=== PATIENT | female | born 1975 | race Caucasian/White ===

== ENCOUNTER 2024-05-02 14:26 | Outpatient (BNV) | payer MEDICAID, SELFPAY | END 2024-05-06 16:00 | PROVIDERS: Admitting Provider Psychiatry & Neurology Psychiatry; Visit Provider Radiology Diagnostic Radiology | DX: M25.512 Pain in left shoulder (principal) | CPT/HCPCS: 73030 ==

== ENCOUNTER 2024-05-02 14:26 | Outpatient (BNV) | payer MEDICAID, SELFPAY | END 2024-05-07 08:00 | PROVIDERS: Admitting Provider Psychiatry & Neurology Psychiatry; Visit Provider General Practice | DX: R10.12 Left upper quadrant pain (principal) | CPT/HCPCS: 76705 ==

== ENCOUNTER 2024-05-02 14:26 | Inpatient (IN) | payer OTHER, SELFPAY ==
--- NOTE | ~2024-05-02 | US_ITS ---
CLINICAL HISTORY: LUQ pain, pt believes she has hernia sx US abdomen limited Comparison: None Findings: Limited/focused ultrasound at area of interest in anterior left upper quadrant. No mass or fluid collection identified. No hernia identified. IMPRESSION: No hernia, mass or fluid collection identified at area of interest in the left upper quadrant. This document has been electronically signed by: Guille Trevino MD, PHD on 05/09/2024 00:48:01
--- NOTE | ~2024-05-02 | XR_ITS ---
CLINICAL HISTORY: rotator cuff area pain 3 view left shoulder Comparison: None Findings: Bones intact. No dislocations. Acromioclavicular osteoarthritis. No erosions. No radiopaque foreign body. IMPRESSION: 1. No acute findings This document has been electronically signed by: Jaswant Morrison MD on 05/06/2024 17:17:40
[2024-05-02 14:37] VITALS: BP 148/82; PULSE 71; RESP 16; TEMP 36.4; O2SAT 97
[2024-05-02 14:38] VITALS: BMI 27.9
--- OUTSIDE RECORDS SUMMARY | 2024-05-02 15:42 | XMS_ITS | Clinical Summary ---
[facility] Address [address] [place] [address] Phone Care Team Providers Care Chemistry Technical Officer Name Role Phone Required, No Pcp/Pcp Not Primary Care Provider U navailable Medications levoFLOXacin (LEVAQUIN) 750 MG tablet Take 1 tablet (750 mg) by mouth daily for 10 days 10 tablet 5 05/04/19 25 Active metroNIDAZOLE (FLAGYL) 500 MG tablet Take 1 tablet (500 mg) by mouth three times a day for 10 days 30 tablet 5 05/04/19 25 Active DULoxetine (CYMBALTA) 30 MG capsule Take 1 capsule (30 mg) by mouth daily 5 Active oxyCODONE (Roxicodone) 5 MG immediate release tablet Take 1 tablet (5 mg) by mouth every four hours as needed for pain 7-10 3 each 5 05/01/19 25 Discontinu ed(Patient no longer taking) Active Problems Problem Noted Date Diagnosed Date Depression, major, severe recurrence 05/01/2024 Encounters Date Type Department Care Team Description 05/01/2024 2:27 PM EST - 05/02/2024 12:41 PM [facility] Emergency [facility] - Emergency Department [address] [place] [id number] Julian Chatterjee MD Chang, Howard Hong-Juei, MD Pierce, Jonathan David, DO Obrien, Elizabeth, MD Discharge Disposition: Psychiatric Facility 05/01/2024 Travel 04/24/2024 2:05 PM EST - 04/24/2024 4:02 PM [facility] Emergency [facility] - Emergency Department [address] [place] [address] Dental caries (Primary Dx); Dental infection Discharge Disposition: Home / Self Care from Last 3 Months Social History Tobacco Use Types Packs/Day Years Used Date Smoking Tobacco: Never Assessed Comments Unknown Sex and Gender Information Value Date Recorded Sex Assigned at Not on file Legal Sex Female 1:21 PM EST Gender Identity Not on file Sexual Orientation Not on file Last Filed Vital Signs Vital Sign Reading Time Taken Comments Blood Pressure 117/82 05/02/2024 11:59 AM EST Pulse 100 05/02/2024 11:59 AM EST Temperature 36.7 ??C (98 ??F) 05/02/2024 11:59 AM EST Respiratory Rate 18 05/02/2024 11:59 AM EST Oxygen Saturation 96% 05/02/2024 11:59 AM EST Inhaled Oxygen Concentration - - Weight 83 kg (183 lb) 05/01/2024 1:07 PM EST Height 167.6 cm (5' 6 ) 05/01/2024 1:07 PM EST Body Mass Index 29.54 05/01/2024 1:07 PM EST Plan of Treatment Health Maintenance Due Date Last Done Comments [facility] TOPIC SIGMOIDOSCOPY 1974 [facility] Topic HIV Screening 1974 [facility] Topic Hepatitis C Screening 1974 [facility] Topic Depression Screening 1986 [facility] Topic Tdap Vaccine (1 - Tdap) 1993 [facility] Topic Lipid Profile 5 years 1996 [facility] Topic Cervical Cancer Screening 2004 [facility] TOPIC MAMMOGRAM 2014 [facility] TOPIC FOBT/FIT TEST 06/26/2019 [facility] Topic Cologuard 06/26/2019 [facility] Topic Colon Cancer Screening 06/26/2019 [facility] Topic Colonoscopy 06/26/2019 [facility] Topic Influenza (Flu) Seasonal (#1) 2023 [facility] Topic HIB Vaccines Aged Out No longer eligible based on patient's age to complete this topic Procedures Procedure Name Priority Date/Time Associated Diagnosis Comments URINE DRUGS OF ABUSE SCREEN STAT 05/01/2024 5:43 PM EST SLIDE REVIEW Routine 05/01/2024 5:21 PM EST HCG, QUANTITATIVE STAT 05/01/2024 5:2 1 PM EST SALICYLATE LEVEL STAT 05/01/2024 5:21 PM EST ETHANOL STAT 05/01/2024 5:21 PM EST COMPREHENSIVE METABOLIC PANEL STAT 05/01/2024 5:21 PM EST CBC WITH AUTO DIFFERENTIAL STAT 05/01/2024 5:21 PM EST ACETAMINOPHEN LEVEL STAT 05/01/2024 5 :21 PM EST ECG 12-LEAD STAT 05/01/2024 4:24 PM EST COVID-19 ([facility]) STAT 05/01/2024 3:58 PM EST from Last 3 Months Results * Urine drugs of abuse screen (05/01/2024 5:43 PM EST) Amphetamines, Urine Screen None Detected None Detected 05/01/2024 6:13 PM [facility] Barbiturates, Urine Screen None Detected None Detected 05/01/2024 6:13 PM [facility] Benzodiazepines, Urine Screen None Detected None Detected 05/01/2024 6:13 PM [facility] Cocaine, Urine Screen None Detected None Detected 05/01/2024 6:13 PM [facility] Opiates, Urine Screen None Detected None Detected 05/01/2024 6:13 PM [facility] Cannabinoids (THC), Urine Screen None Detected None Detected 05/01/2024 6:13 PM [facility] Tricyclic Antidepressants, Urine Screen None Detected None Detected 05/01/2024 6:13 PM [facility] Fentanyl, Urine Screen None Detected None Detected 05/01/2024 6:13 PM [facility] Methadone, Urine Screen None Detected None Detected 05/01/2024 6:13 PM [facility] Oxycodone, Urine Screen None Detected None Detected 05/01/2024 6:13 PM [facility] Buprenorphine, Urine Screen None Detected None Detected 05/01/2024 6:13 PM [facility] Phencyclidine, Urine Screen None Detected None Detected 05/01/2024 6:13 PM [facility] Urine Urine specimen obtained by clean catch procedure / Unknown Non-blood Collection / Unknown 05/01/2024 5:43 PM EST 05/01/2024 5:56 PM [facility] - 05/01/2024 6:13 PM EST This is a screening test for urine drugs of ABUSE only, performed using Zuleyka Joel analyzer. It is not designed or intended to monitor treatment or assess patient compliance. ??Those purposes are best served by a specific assay for the specific drug being administered. ?? Like any screening test, this drug screen has inherent limitations. ?? A result of NONE DETECTED indicates the absence of the major metabolites of the tested drugs or their presence at a level below the cut-off concentration (see below). ??False negative results may be due to the pharmacokinetics of the drug and/or the timing of the sample relative to the use of the drug in question. ?? A POSITIVE result is a presumptive qualitative positive which indicates that the major metabolites of the tested drugs are likely present at or above their cut- off concentration (see below). ??False positive results may be caused by cross- reacting substances. ??Unconfirmed positive results of this screening test must not be used for non-medical purposes. ?? Cutoffs for Drug Classes: Amphetamines ? 1000 ng/mL Barbiturates ? 200 ng/mL Benzodiazepines ??100 ng/mL Cocaine ?300 ng/mL Opiates ?300 ng/mL TCA ?300 ng/mL THC ?50 ng/mL Fentanyl ?5 ng/mL Methadone ?300 ng/ml Oxycodone ?100 ng/ml Buprenorphine ?5 ng/ml Phencyclidine ? 25 ng/ml [facility] URINE ORDERABLES Final Result [facility] [address] [place] [address], [place] [phone] * Slide Review (05/01/2024 5:21 PM EST) RBC Morphology Normal 05/01/2024 6:29 PM [facility] Blood Venous blood / Unknown Venipuncture / Unknown 05/01/2024 5:21 PM EST 05/01/2024 5:30 PM EST Armando Pascale [facility] BLOOD ORDERABLES Final Result Performing Organization Address City/[facility]/ZIP Co de Phone Number [facility] [address] [place] [address], [place] [phone] * (ABNORMAL) CBC with auto differential (05/01/2024 5:21 PM EST) WBC 11.2(H) 4.5 - 10.8 10*3 ??l 05/01/2024 5:58 PM [facility] RBC 5.00 4.20 - 5.40 10*6 ??l 05/01/2024 5:58 PM [facility] Hemoglobin 15.7 12.0 - 16.0 g/dL 05/01/2024 5:58 PM [facility] Hematocrit 46.2 36.0 - 48.0 % 05/01/2024 5:58 PM [facility] MCV 92 81 - 99 fL 05/01/2024 5:58 PM [facility] MCH 31.4 25.4 - 39.0 pg 05/01/2024 5:58 PM [facility] MCHC 34.0 31.0 - 37.0 g/dL 05/01/2024 5:58 PM [facility] RDW 12.7 11.5 - 14.5 % 05/01/2024 5:58 PM [facility] Platelets 457(H) 150 - 450 10*3 ??l 05/01/2024 5:58 PM [facility] MPV 8.9 7.0 - 11.0 fL 05/01/2024 5:58 PM [facility] Neutrophils % 73.6 40.0 - 80.0 % 05/01/2024 5:58 PM [facility] Lymphocytes % 18.4(L) 20.0 - 40.0 % 05/01/2024 5:58 PM [facility] Monocytes % 5.9 2.0 - 10.0 % 05/01/2024 5:58 PM [facility] Eosinophils % 1.2 1.0 - 6.0 % 05/01/2024 5:58 PM [facility] Basophils % 0.4 0.0 - 1.0 % 05/01/2024 5:58 PM [facility] Immature Granulocyte % 0.5 0.0 - 0.9 % 05/01/2024 5:58 PM [facility] Neutrophils Absolute 8.24(H) 2.00 - 7.00 K/mm3 05/01/2024 5:58 PM [facility] Absolute Immature Granulocyte 0.06 0.00 - 0.09 K/mm3 05/01/2024 5:58 PM [facility] Lymphocytes Absolute 2.06 1.00 - 3.00 K/mm3 05/01/2024 5:58 PM [facility] Monocytes Absolute 0.66 0.20 - 1.00 K/mm3 05/01/2024 5:58 PM [facility] Eosinophils Absolute 0.13 0.00 - 0.50 K/mm3 05/01/2024 5:58 PM [facility] Basophils Absolute 0.04 0.00 - 0.10 K/mm3 05/01/2024 5:58 PM [facility] Blood Venous blood / Unknown Venipuncture / Unknown 05/01/2024 5:21 PM EST 05/01/2024 5:30 PM EST us Armando AL[facility] BLOOD ORDERABLES Final Result [facility] [address] [place] [address], * hCG, quantitative, (05/01/2024 5:21 PM EST) HCG, Total <=1.00 mIU/mL 05/01/2024 5:57 PM EST [facility] Comment: Reference Ranges ? mIU/mL <1 - 5 ?Negative 6 - 9 ? Indeterminate - suggest repeat in 48 hours Weeks post LMP ? HCG Range ??4 weeks ? 420 - 4,480 ??5 weeks ? 270 - 28,700 ??6 weeks ? 3,700 - 84,900 ??7 weeks ? 9,700 - 120,000 ??8 weeks ? 31,100 - 184,000 ??9 weeks ? 61,200 - 152,000 10 weeks ? 22,000 - 143,000 14 weeks ? 14,300 - 75,800 16 weeks ? 8,800 - 54,500 18 weeks ? 3,900 - 49,400 Blood Venous blood / Unknown Venipuncture / Unknown 05/01/2024 5:21 PM EST 05/01/2024 5:29 PM EST [facility] BLOOD ORDERABLES Final Result [facility] [address] [place] [address], [place] [phone] * Ethanol (05/01/2024 5:21 PM EST) Ethanol <=10 0 - 10 mg/dL 05/01/2024 6:08 PM EST [facility] Comment:NONE DETECTED: Resul t <10 should be interpreted as NONE DETECTED. Blood Venous blood / Unknown Venipuncture / Unknown 05/01/2024 5:21 PM EST 05/01/2024 5:29 PM EST [facility] BLOOD ORDERABLES Final Result [facility] [address] [place] [address], [place] [phone] * Acetaminophen level (05/01/2024 5:21 PM EST) Acetaminophen Level <5.1 <15.0 ug/mL 05/01/2024 6:08 PM [facility] Blood Venous blood / Unknown Venipuncture / Unknown 05/01/2024 5:21 PM EST 05/01/2024 5:29 PM EST [facility] BLOOD ORDERABLES Final Result [facility] [address] [place] [address], [place] [phone] * Salicylate level (05/01/2024 5:21 PM EST) Salicylate Level <=3.0 3.0 - 30.0 mg/dL 05/01/2024 6:08 PM [facility] Blood Venous blood / Unknown Venipuncture / Unknown 05/01/2024 5:21 PM EST 05/01/2024 5:29 PM EST us [facility] BLOOD ORDERABLES Final Result [facility] [address] [place] [address], [place] [phone] * (ABNORMAL) Comprehensive metabolic panel (05/01/2024 5:21 PM EST) Pathologist [facility] Glucose 91 70 - 100 mg/dL 05/01/2024 5:59 PM [facility] BUN 9 6 - 19 mg/dL 05/01/2024 5:59 PM [facility] Creatinine 0.9 0.4 - 1.2 mg/dL 05/01/2024 5:59 PM [facility] eGFR >60.00 >60.00 mL/min/1.7 3m*2 05/01/2024 5:59 PM [facility] Sodium 136 135 - 145 mmol/L 05/01/2024 5:59 PM [facility] Potassium 3.9 3.4 - 5.1 mmol/L 05/01/2024 5:59 PM [facility] Chloride 97(L) 98 - 109 mmol/L 05/01/2024 5:59 PM [facility] CO2 27 24 - 32 mmol/L 05/01/2024 5:59 PM [facility] Anion Gap 12 6 - 12 mmol/L 05/01/2024 5:59 PM [facility] Calcium 9.6 8.5 - 10.5 mg/dL 05/01/2024 5:59 PM [facility] Total Bilirubin 0.2 0.2 - 1.2 mg/dL 05/01/2024 5:59 PM [facility] Alkaline Phosphatase 142(H) 35 - 104 U/L 05/01/2024 5:59 PM [facility] ALT (SGPT) 18 0 - 31 U/L 05/01/2024 5:59 PM [facility] AST 21 0 - 32 U/L 05/01/2024 5:59 PM EST [facility] Total Protein 7.6 6.0 - 8.5 g/dL 05/01/2024 5:59 PM [facility] Albumin 4.4 3.3 - 5.2 g/dL 05/01/2024 5:59 PM EST [facility] Estimated Creatinine Clearance 82.1 mL/min 05/01/2024 5:59 PM EST [facility] Blood Venous blood / Unknown Venipuncture / Unknown 05/01/2024 5:21 PM EST 05/01/2024 5:29 PM EST [facility] AL[facility] BLOOD ORDERABLES Final Result [facility] [address] [place] [address], * ECG (05/01/2024 4:24 PM EST) 05/01/2024 4:24 PM EST 05/02/2024 10:23 AM EST Impressions MUSE - 05/02/2024 10:23 AM EST Test Reason : SI Blood Pressure : ?? */* ?? mmHG Vent. Rate : ??84 BPM ? Atrial Rate : ??84 BPM ?? P-R Int : 140 ms ?QRS Dur : ??76 ms ?QT Int : 350 ms ? P-R-T Axes : ??83 ??56 ??50 degrees ?? QTc Int : 413 ms Normal sinus rhythm Normal ECG No previous ECGs available Referred By: LEYLA GA ? Confirmed By: Galo Sanchez Narrative Procedure Note Galo Sanchez MD - 05/02/2024 IMPRESSION Test Reason : SI Blood Pressure : */* mmHG Vent. Rate : 84 BPM Atrial Rate : 84 BPM P-R Int : 140 ms QRS Dur : 76 ms QT Int : 350 ms P-R-T Axes : 83 56 50 degrees QTc Int : 413 ms Normal sinus rhythm Normal ECG No previous ECGs available Referred By: LEYLA GA Confirmed By: Galo Sanchez us Leyla Ga MD ECG ORDERABLES Final Resu lt MUSE * COVID-19 ([facility]) (05/01/2024 3:58 PM EST) COVID-19 ([facility]) PCR Negative Negative LTT PANTHER ANALYZER-DP H 05/01/2024 8:41 PM EST [facility] Swab (Nasopharynx) Non-blood Collection / Unknown 05/01/2024 3:58 PM EST 05/01/2024 5:02 PM EST us Armando AL[facility] MICROBIOLOGY - GENERAL ORDERABLES Final Result [facility] [address] [facility] [place] [address], from Last 3 Months Advance Directives For more information, please contact: [phone] * Full Code (Latest Code Status on File) Date Activated Date Inactivated Comments 05/01/2024 8:25 PM Question Answer Comments Cardiopulmonary Resuscitatio n: for a patient in cardiac or respiratory arrest (Full Code = Attempt Resuscitation, DNR = Do not attempt resuscitation): Full Code Ventilation: for a patient in respiratory distre ss: Intubate and Ventilate Care Teams Chemistry Technical Officer Relationship Specialty Start Date End Date Required, No Pcp/Pcp Not [address] [place] [address] PCP - General Treasury Representative 04/24/24
--- OUTSIDE RECORDS SUMMARY | 2024-05-02 15:42 | XMS_ITS | Encounter Summary ---
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 send a message? No Ask the person: Are you in a Dangerous Situation? No If Yes, please explain: (Follow and document per your emergency protocols) N/A Patient Preferred Languages Pl[employer] Designer Needed No Spoken Language Micronesian Written Language Micronesian Assessment Location of Service (R): ED Who directed client to ED? (R) Self/Family Was the patient sent with a Section 12 (R) No Who signed Section 12? (R) N/A Presenting Concerns: What has caused this person to seek Services at this time? Increased depression and SI thoughts Precipitating Factors: recent breakup and relocation Medical/Physical No past medical history on file. Allergies Reported Not on File Medications Prior to Admission medications Medication Sig Start Date End Date Taking? Authorizing Provider levoFLOXacin (LEVAQUIN) 750 MG tablet Take 1 tablet (750 mg) by mouth daily for 10 days 04/24/24 05/04/24 Solitario Escalera PA metroNIDAZOLE (FLAGYL) 500 MG tablet Take 1 tablet (500 mg) by mouth three times a day for 10 days 04/24/24 05/04/24 Solitario Escalera PA oxyCODONE (Roxicodone) 5 MG immediate release tablet Take 1 tablet (5 mg) by mouth every four hoursas needed for pain 7-10 04/24/24 Solitario Escalera PA Relevant History No family history on file. Addiction Is there a history of, or current substance use or other addictive behavior? No Was a toxicology screen performed? Yes Results: N/A Was Narcan administered during the last 30 days? No Explain (Please include date and time): N/A Addiction/ Substance Use History Substance Type First Use/Age of Onset Last Use Duration/Frequency Quantities Comments Alcohol Cannabis Cocaine/Crack Heroin Opiates/Narcotics Benzodiazepines Stimulants Hallucinogens Prescription Other: Click or tap here to enter text. Most Recent Acute Admission(s) and Treatment History Has there been a recent acute admission or treatment history? No Please include dates of admission, service type, name of agency/provider, goal/outcome: N/A Mental Status Exam/Risk Assessment Mental Status Exam/Risk Assessment (within normal limits unless checked, items checked are addressed in clinical formulation/narrative: *Harm to Self , Affect, Appetite, Energy, Impulsivity, Insight,Judgement, Mood, and Thought Content *Harm to Self and Others include: Means, accessibility (included access to firearms), lethality of means, suicidal/assault history, lethality or attempts/assaults, family history, self- injurious behavior Risk and Protective Factors: Risk: Lack of outpatient services Increased depression Endorsing SI Protective: Help seeking Supportive community Clinical Formulation/Narrative/Medical Necessity: Marlin Garrison is a 48 year old female who presented to the ED with increased SI thoughts. Ms. Garrison is not known to [facility], and has a current diagnosis of depression. Ms. Garrison doesnot currently have any current outpatient services and she has not been hospitalized in several years. Ms. Garrison had a suicide attempt at 16 years old, and she has been medically cleared. Ms. Garrison states she is here today because she is increasingly ???depressed?? and that she has had ???suicidal thoughts?? for the past 2 weeks. Ms. Garrison shares that she has recently moved back to [place] from [place] a month ago, and has also recently gone through a ???breakup with my fianc??e?? Ms. Garrison, states her cousin who ???does what you do?? brought her in to the hospital because she was talking to her ???about my thoughts?? Ms. Garrison does not specifically endorse a plan to end her life, she states ???right now I'm ok but who knows in an hour?? . She denies access to firearms, and denies the use of alcohol or illicit drugs. Ms. Garrison shares her mother had a significant psychiatric history, and she describes her mood as ???sad?? Ms. Garrison states her sleep has been horrible, and she has not felt like eating. Ms. Garrison states she has not been able to ???get out of bed?? since she moved back from [place], and that's all she does all day. She states she lives with her friend's mother and she appears to have support in the community. Ms. Mcpherson was resting in her bed in the ED Room 23, wearing green scrubs, she is A&OX4. Ms. Mcpherson was fully engaged and cooperative, and presented with a flat affect. Her speech was clear and well-modulated, her thoughts were organized and linear. She denies any intent to self-harm or cause harm to others, she denies HI however she does not deny SI thoughts. When asked about A/V Hallucinations, Ms. Mcpherson states she sometimes ???see my mother?? Ms. Garrison presents with moderate insight, low impulsivity, and moderate judgement. She did not appear to be responding to internal stimuli and her thoughts did not appear to contain delusional or paranoid thoughts. 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 Collateral information attempted to be collected from Ms. Garrison's cousin Natacha Nath [phone], who was unavailable, and no call back was received. At this time it is recommended that Ms. Garrison be placed for an IPLOC. Back-Up Clinician Candis COTTO and the ED PA Brenda Chowdhury, and well as the ED Physician Julian Chatterjee MD were all consulted and in agreement with the current treatment plan. Ms. Mcpherson, her [facility] ED Care Team and the [facility] Triage have all been notified of the current plan. Strengths and Services Preferences: Person's strengths and service preferences: Mitigate depression and SI Is there a Safety Plan? (R): Yes If yes, please explain: IPLOC Was a Safety Plan completed or updated during the course of this intervention? (R) Yes If no, please explain: N/A Diagnosis Type Mental Health Only (R): Yes Substance Use Disorder Only (R): No Dual Diagnosis (R): No Comments: N/A Is this person diagnosed with Autism Spectrum Disorder? (R): No Was a Doc to Doc performed? (R): No Was this an Opiod overdose? (R): No Is this a SUDE (Substance Use Disorder Evaluation)? No Was there an MARGIE Peer or FP participating in the intervention? (R): No Who initiated FP intervention? (R): N/A Identified Needs and Goals for Treatment Medication stabilization 2. Mental health evaluation 3. Outpatient services Additional Recommendations Additional Recommendations: Case Management Services, MARGIE Follow-Up Clinician, FP, CPS, etc, Medication Assisted Treatment, Other, Outpatient Mental Health Provider, Resource Coordination, Self-Help/Peer/Family Support Services, Long Term/Homeless Services, and Psychopharmacology If other, please explain: Disposition Details Information gathered from:Person Served, Family/Guardian, Hospital Staff, and Reports If other, please explain: Medical Clearance Requested (R): Yes Medical Clearance Requested by (R): ED If other, please explain: Medical Clearance Provided (R): Yes Medical Clearance Provided Where? (R): ED If other, please explain: Clinical Consult done with:Candis Dang Current Safety Assessment: Able to plan for safety in a supportive environment only If other, please explain: Inital Disposition: Inpatient Psychiatric Private For Acute Care Time (R): Psychiatric Consult Began Date (R): Time (R): Psychiatric Intervention Began Date (R): Time (R): Intervention Began Time (R) Telehealth: NA Diagnosis: F32.9 Unspecified depressive disorder Consult Note documented in this encounter ED Notes * Brenda Meléndez PA - 05/01/2024 7:26 PM EST PSYCH SHIFT ASSESSMENT NOTE: Assumed care from my colleague at change of shift. Patient remains stable. Patient awaiting psych disposition No new complaints. Has received necessary baseline medications. MD available:Sen Inpatient level of care recommended, bed search underway, patient cannot leave AGAINST MEDICAL ADVICE. Brenda Meléndez PA 05/01/241925 This patient was reevaluated on May 01, 2024 at 7:29 PM. Examination shows inpatient bed search. Plan at this time is inpatient bed search. Brenda Meléndez PA 05/01/241928 * Julian Chatterjee MD - 05/01/2024 7:03 [place] [address] Radha Garrison is a 48 y.o. female ED Attending Supervisory Note I have personally interviewed and examined this patient and I performed a substantive portion of this visit including all aspects of the medical decision making. I have discussed the case with [employer] Distributor Armando Coffey PA as presented to me. I personally made/approved the management plan including all aspects of the history and physical exam, history and medical making. And take responsibility for this patient's management. Pertinent history and data: --This is a 48-year-old female comes in feeling more depressed many stressors denies HI hearing voices has thought about hurting herself however. Only physical complaint close today she had some dental pain after eating. CBC mild elevation white count 11.2 CMP panel unremarkable urine drug screen unremarkable Tylenol aspirin alcohol negative EKG showed sinus rhythm rate of 84 QTc 0.413 no ischemic changes Physical exam: General: No acute distress HEENT: EOMI, mouth and throat normal looking at the area she is compared with tooth pain there is no swelling no erythema this is left lower jaw no swelling outside of her face Lungs: Clear to auscultation. Cardiac: RRR, no rubs. Abdomen: Soft, non-tender, non-distended. Normal bowel sounds, no hepatosplenomegaly. Impression: Depression, suicidal ideation medically evaluated and cleared without evidence of dental infection Plan: Instructions per psychiatric services which is likely inpatient. Given Tylenol for her dentalpain. VOICE DICTATION: This document was primarily generated by voice recognition software. There may be incorrect spelling or phrases that were missed and/or unedited. Unintentional errors may thus be present, resulting in a change of meaning or intent. Please contact me directly if you have any questions regarding thisdictation. Julian Chatterjee MD 05/01/24 1906 * Armando Coffey PA - 05/01/2024 2:58 PM EST Images from the original note were not included. Department of Emergency Medicine HPI Chief Complaint Patient presents with Suicidal This a 48-year-old female no pertinent past medical history who presents to the ER for concerns of suicidal ideation. Patient is she recently underwent a break- up where she has been quite depressed and had thoughts of hurting herself. She notes that she had multiple plans and had a hurt herself including overdosing on medication however never actually performed any of these acts. She notes that dre mancini has attempted suicide multiple years ago. The patient notes that she currently does not have any other acute complaints. She is not any pain to any area. Has not any fevers, chills, or other acute symptoms. She denies any drugs or alcohol. Patient History PAST MEDICAL HISTORY No past medical history on file. No past surgical history on file. No family history on file. Patient's Medications New Prescriptions No medications on file Previous Medications LEVOFLOXACIN (LEVAQUIN) 750 MG TABLET Take 1 tablet (750 mg) by mouth daily for 10 days METRONIDAZOLE (FLAGYL) 500 MG TABLET Take 1 tablet (500 mg) by mouth three times a day for 10 days OXYCODONE (ROXICODONE) 5 MG IMMEDIATE RELEASE TABLET Take 1 tablet (5 mg) by mouth every four hoursas needed for pain 7-10 Modified Medications No medications on file Discontinued Medications No medications on file ALLERGIES: Not on File Review of Systems Review of Systems All other systems reviewed and negative except as noted. Physical Exam VITAL SIGNS: BP 130/87 (BP Location: Left arm, Patient Position: Sitting) Pulse (!) 115 Temp 97.7 ??F (36.5 ??C) (Temporal) Resp 18 Ht 5' 6 (1.676 m) Wt 83 kg (183 lb) SpO2 98% BMI 29.54 kg/m?? PHYSICAL EXAM: Physical Exam Vitals and nursing note reviewed. Constitutional: General: She is not in acute distress. Appearance: She is well-developed. HENT: Head: Normocephalic and atraumatic. Eyes: Conjunctiva/sclera: Conjunctivae normal. Cardiovascular: Rate and Rhythm: Normal rate and regular rhythm. Heart sounds: No murmur heard. Pulmonary: Effort: Pulmonary effort is normal. No respiratory distress. Breath sounds: Normal breath sounds. Abdominal: Palpations: Abdomen is soft. Tenderness: There is no abdominal tenderness. Musculoskeletal: Cervical back: Neck supple. Skin: General: Skin is warm and dry. Neurological: Mental Status: She is alert and oriented to person, place, and time. ASSESSMENT: Nursing notes and prior medical records reviewed. Radha Garrison is a 48 y.o. year old female who was evaluated at our facility. Due to this complaint our differential included but was not limited to: SI, HI, metabolic derangement, alcohol intoxication, alcohol withdrawal, illicit drug abuse, psychosis. PLAN: We will proceed with CBC, CMP, salicylates level, acetaminophen level, ethanol level, COVID-19 test, as well as monitoring. This patient is escalated to observation status on Service Date: 05/01/2024 at Service Time: 2:55 PM . Observation is necessary for ongoing evaluation of suicidal ideation. EKG: EKG reveals no acute ischemic changes as read by ED attending and by myself. LABORATORY STUDIES: Labs Reviewed COVID-19 ([facility]) ACETAMINOPHEN LEVEL CBC WITH AUTO DIFFERENTIAL COMPREHENSIVE METABOLIC PANEL ETHANOL SALICYLATE LEVEL URINE DRUGS OF ABUSE SCREEN HCG, QUANTITATIVE IMAGING STUDIES READ BY RADIOLOGY: ECG (Results Pending) PROCEDURES: Procedures ED COURSE: CONSULTS AND CONSIDERATIONS OF CARE: Escalation of care to admission or observation considered. Discussion of management with physician, qualified health professional, and/or appropriate source included but not limited to: My independent interpretation of images includes: Social Determinants of Health significantly affecting the care and disposition of this patient include: Chronic Conditions affecting care include: Additional pertinent available records reviewed: [facility] Records As discussed in my note following testing was considered but ultimately not selected after discussion with patient/family/health care proxy: CLINICAL DIAGNOSIS: Suicidal ideation CASE WAS DISCUSSED WITH: Dr. Chatterjee Armando Coffey [facility] Emergency Medicine Armando Coffey PA 05/01/24 1627 * Janet Mora RN - 05/01/2024 2:22 PM EST Radha Garrison is a 48 y.o. female presenting with Suicidal Pt presents to ed via lobby with c/o suicidal ideations. documented in this encounter Miscellaneous Notes * Behavioral Health - Brenda Garibay MSW - 05/02/2024 10:16 AM EST Accepted to [facility] @[address] [place] * Behavioral Health - rBenda Garibay MSW - 05/02/2024 8:19 AM EST Faxed to david * Behavioral Health - Yudelka Cardozo - 05/02/2024 5:56 AM EST Faxed to [facility] documented in this encounter Plan of Treatment Not on file documented as of this encounter Procedures Procedure Name Priority Date/Time Associated Diagnosis Comments URINE DRUGS OF ABUSE SCREEN STAT 05/01/2024 5:43 PM EST SLIDE REVIEW Routine 05/01/2024 5:21 PM EST CBC WITH AUTO DIFFERENTIAL STAT 05/01/2024 5:21 PM EST HCG, QUANTITATIVE STAT 05/01/2024 5:2 1 PM EST ETHANOL STAT 05/01/2024 5:21 PM EST ACETAMINOPHEN LEVEL STAT 05/01/2024 5 :21 PM EST SALICYLATE LEVEL STAT 05/01/2024 5:21 PM EST COMPREHENSIVE METABOLIC PANEL STAT 05/01/2024 5:21 PM EST ECG 12-LEAD STAT 05/01/2024 4:24 PM EST COVID-19 ([facility]) STAT 05/01/2024 3:58 PM EST documented in this encounter Results * Urine drugs of abuse screen (05/01/2024 5:43 PM EST) Amphetamines, Urine Screen None Detected None Detected 05/01/2024 6:13 PM [facility] Barbiturates, Urine Screen None Detected None Detected 05/01/2024 6:13 PM [facility] Benzodiazepines, Urine Screen None Detected None Detected 05/01/2024 6:13 PM [facility] Cocaine, Urine Screen None Detected None Detected 05/01/2024 6:13 PM [facility] Opiates, Urine Screen None Detected None Detected 05/01/2024 6:13 PM [facility] Cannabinoids (THC), Urine Screen None Detected None Detected 05/01/2024 6:13 PM [facility] Tricyclic Antidepressants, Urine Screen None Detected None Detected 05/01/2024 6:13 PM [facility] Fentanyl, Urine Screen None Detected None Detected 05/01/2024 6:13 PM [facility] Methadone, Urine Screen None Detected None Detected 05/01/2024 6:13 PM [facility] Oxycodone, Urine Screen None Detected None Detected 05/01/2024 6:13 PM [facility] Buprenorphine, Urine Screen None Detected None Detected 05/01/2024 6:13 PM [facility] Phencyclidine, Urine Screen None Detected None Detected 05/01/2024 6:13 PM [facility] Urine Urine specimen obtained by clean catch procedure / Unknown Non-blood Collection / Unknown 05/01/2024 5:43 PM EST 05/01/2024 5:56 PM [facility] - 05/01/2024 6:13 PM EST This [...] Armando ALICIA LAB URINE ORDERABLES Final Result Performing Organization Address [facility] Co de Phone Number [facility] [address] [place] [address], * Slide Review (05/01/2024 5:21 PM EST) [facility] RBC Morphology Normal 05/01/2024 6:29 PM EST [facility] Blood Venous blood / Unknown Venipuncture / Unknown 05/01/2024 5:21 PM EST 05/01/2024 5:30 PM EST Armando ALICIA LAB BLOOD ORDERABLES Final Result Performing Organization Address [facility] de Phone Number [facility] [address] [place] [address], * hCG, quantitative, (05/01/2024 5:21 PM EST) Pathologist [facility] HCG, Total <=1.00 mIU/mL 05/01/2024 5:57 PM EST [facility] Comment: Reference Ranges ? mIU/mL <1 [...] Armando ALICIA LAB BLOOD ORDERABLES Final Result Performing Organization Address [facility] Co de Phone Number [facility] [address] [place] [address], * Salicylate level (05/01/2024 5:21 PM EST) Salicylate Level <=3.0 3.0 - 30.0 mg/dL 05/01/2024 6:08 PM EST [facility] Blood Venous blood / Unknown Venipuncture / Unknown 05/01/2024 5:21 PM EST 05/01/2024 5:29 PM EST Armando ALICIA LAB BLOOD ORDERABLES Final Result [facility] [address] [place] [address], [place] [phone] * Ethanol (05/01/2024 5:21 PM EST) Ethanol <=10 0 - 10 mg/dL 05/01/2024 6:08 PM [facility] Comment:NONE DETECTED: Resul t <10 should be interpreted as NONE DETECTED. Blood Venous blood / Unknown Venipuncture / Unknown 05/01/2024 5:21 PM EST 05/01/2024 5:29 PM EST Armando ALICIA LAB BLOOD ORDERABLES Final Result Performing Organization Address [facility]/ZIP Co de Phone Number [facility] [address] [place] [address], [place] [phone] * (ABNORMAL) Comprehensive metabolic panel (05/01/2024 5:21 PM EST) Pathologist [facility] Glucose 91 70 - 100 mg/dL 05/01/2024 5:59 PM [facility] BUN 9 6 - 19 mg/dL 05/01/2024 5:59 PM [facility] Creatinine 0.9 0.4 - 1.2 mg/dL 05/01/2024 5:59 PM [facility] eGFR >60.00 >60.00 mL/min/1.7 3m*2 05/01/2024 5:59 PM [facility] Sodium 136 135 - 145 mmol/L 05/01/2024 5:59 PM [facility] Potassium 3.9 3.4 - 5.1 mmol/L 05/01/2024 5:59 PM [facility] Chloride 97(L) 98 - 109 mmol/L 05/01/2024 5:59 PM [facility] CO2 27 24 - 32 mmol/L 05/01/2024 5:59 PM [facility] Anion Gap 12 6 - 12 mmol/L 05/01/2024 5:59 PM [facility] Calcium 9.6 8.5 - 10.5 mg/dL 05/01/2024 5:59 PM [facility] Total Bilirubin 0.2 0.2 - 1.2 mg/dL 05/01/2024 5:59 PM [facility] Alkaline Phosphatase 142(H) 35 - 104 U/L 05/01/2024 5:59 PM [facility] ALT (SGPT) 18 0 - 31 U/L 05/01/2024 5:59 PM [facility] AST 21 0 - 32 U/L 05/01/2024 5:59 PM [facility] Total Protein 7.6 6.0 - 8.5 g/dL 05/01/2024 5:59 PM [facility] Albumin 4.4 3.3 - 5.2 g/dL 05/01/2024 5:59 PM [facility] Estimated Creatinine Clearance 82.1 mL/min 05/01/2024 5:59 PM [facility] Blood Venous blood / Unknown Venipuncture / Unknown 05/01/2024 5:21 PM EST 05/01/2024 5:29 PM EST us Armando ALICIA LAB BLOOD ORDERABLES Final Result [facility] [address] [place] [address], * (ABNORMAL) CBC with auto differential (05/01/2024 5:21 PM EST) WBC 11.2(H) 4.5 - 10.8 10*3 ??l 05/01/2024 5:58 PM [facility] RBC 5.00 4.20 - 5.40 10*6 ??l 05/01/2024 5:58 PM [facility] Hemoglobin 15.7 12.0 - 16.0 g/dL 05/01/2024 5:58 PM [facility] Hematocrit 46.2 36.0 - 48.0 % 05/01/2024 5:58 PM [facility] MCV 92 81 - 99 fL 05/01/2024 5:58 PM [facility] MCH 31.4 25.4 - 39.0 pg 05/01/2024 5:58 PM [facility] MCHC 34.0 31.0 - 37.0 g/dL 05/01/2024 5:58 PM [facility] RDW 12.7 11.5 - 14.5 % 05/01/2024 5:58 PM [facility] Platelets 457(H) 150 - 450 10*3 ??l 05/01/2024 5:58 PM [facility] MPV 8.9 7.0 - 11.0 fL 05/01/2024 5:58 PM [facility] Neutrophils % 73.6 40.0 - 80.0 % 05/01/2024 5:58 PM [facility] Lymphocytes % 18.4(L) 20.0 - 40.0 % 05/01/2024 5:58 PM [facility] Monocytes % 5.9 2.0 - 10.0 % 05/01/2024 5:58 PM [facility] Eosinophils % 1.2 1.0 - 6.0 % 05/01/2024 5:58 PM [facility] Basophils % 0.4 0.0 - 1.0 % 05/01/2024 5:58 PM [facility] Immature Granulocyte % 0.5 0.0 - 0.9 % 05/01/2024 5:58 PM [facility] Neutrophils Absolute 8.24(H) 2.00 - 7.00 K/mm3 05/01/2024 5:58 PM [facility] Absolute Immature Granulocyte 0.06 0.00 - 0.09 K/mm3 05/01/2024 5:58 PM [facility] Lymphocytes Absolute 2.06 1.00 - 3.00 K/mm3 05/01/2024 5:58 PM [facility] Monocytes Absolute 0.66 0.20 - 1.00 K/mm3 05/01/2024 5:58 PM [facility] Eosinophils Absolute 0.13 0.00 - 0.50 K/mm3 05/01/2024 5:58 PM [facility] Basophils Absolute 0.04 0.00 - 0.10 K/mm3 05/01/2024 5:58 PM [facility] Blood Venous blood / Unknown Venipuncture / Unknown 05/01/2024 5:21 PM EST 05/01/2024 5:30 PM EST Armando ALICIA LAB BLOOD ORDERABLES Final Result Performing Organization Address City/[facility]/ZIP Co de Phone Number [facility] [address] [place] [address], [place] [phone] * Acetaminophen level (05/01/2024 5:21 PM EST) Acetaminophen Level <5.1 <15.0 ug/mL 05/01/2024 6:08 PM EST [facility] Blood Venous blood / Unknown Venipuncture / Unknown 05/01/2024 5:21 PM EST 05/01/2024 5:29 PM EST Armando ALICIA [facility] BLOOD ORDERABLES Final Result Performing Organization Address [facility] Co de Phone Number [facility] [address] [place] [address], [place] [phone] * ECG (05/01/2024 4:24 PM EST) 05/01/2024 [...] No previous ECGs available Referred By: LEYLA EASTON ? Confirmed By: Galo Sanchez Narrative Procedure [...] No previous ECGs available Referred By: LEYLA EASTON Confirmed By: Galo Sanchez us Leyla Easton MD ECG ORDERABLES Final Resu lt MUSE * COVID-19 ([facility]) (05/01/2024 3:58 PM EST) COVID-19 ([facility]) PCR Negative Negative [facility] PANTHER ANALYZER-DP H 05/01/2024 8:41 PM EST [facility] Swab (Nasopharynx) Non-blood Collection / Unknown 05/01/2024 3:58 PM EST 05/01/2024 5:02 PM EST Armando ALICIA LAB MICROBIOLOGY - GENERAL ORDERABLES Final Result Performing Organization Address City/State/[facility] Co de Phone Number [facility] [address] [place] [address], [place] [phone] documented in this encounter Visit Diagnoses Diagnosis Depression, major, severe recurrence (CMS/HCC)- Primary documented in this encounter Admitting Diagnoses Diagnosis Depression, major, severe recurrence (CMS/HCC) documented in this encounter Administered Medications Active Administered Medications - up to 3 most recent administrations Medication Order MAR Action Action Date Dose Rate Site carboxymethylcellulose ophthalmic gel 1% 1 drop, Each Eye, 3 times daily PRN, eye dryness, Starting on Tue05/01/24 at 2048, OTC Adult Medication Algorithm order Given 05/01/2024 9:11 PM EST 1 drop DULoxetine (CYMBALTA) DR capsule 30 mg 30 mg, Oral, Daily, First dose on Tue05/01/24 at 2025, DO NOT CRUSH OR CHEW. Nasogastric tube: Contents of capsule can be added to a plastic catheter tip syringe with 50 mL of water and gently shaken for 10 seconds before administering through a 12 Grenadian or larger nasogastric tube. Given 05/02/2024 9:27 AM EST 30 mg Given 05/01/2024 9:13 PM EST 30 mg levoFLOXacin (LEVAQUIN) tablet 750 mg 750 mg, Oral, Daily, First dose (after last modification) on Tue05/02/24 at 0900, For 3 days, *Hold tube feedings at least 30 minutes before and 30 minutes after administration* *Separate from antacids, iron, and milk products by 2 hours.*, Indication: Other, Specify: tooth infection Given 05/02/2024 9:27 AM EST 750 mg metroNIDAZOLE (FLAGYL) tablet 500 mg 500 mg, Oral, 3 times daily, First dose (after last modification) on Tue05/01/24 at 2100, For 10 doses, Indication: Other, Specify: tooth infection Given 05/02/2024 9:27 AM EST 500 mg Given 05/01/2024 9:13 PM EST 500 mg nicotine (NICODERM CQ) 14 MG/24HR 1 patch 1 patch, Transdermal, Administer over 12 Hours, Daily, First dose on Tue05/01/24 at 1743, For topical use only. Remove previous patch when new patch is applied. May cause sleep disturbances, consider removing after 12 hours if this occurs. Medication Applied 05/02/2024 9:27 AM EST 1 patch Right Arm Medication Applied 05/01/2024 5:45 PM EST 1 patch Right Arm QUEtiapine (SEROquel) tablet 25 mg 25 mg, Oral, Every 6 hours PRN, restlessness / irritability, Starting on Tue05/01/24 at 2020 Given 05/01/2024 9:1 7 PM EST 25 mg Inactive Administered Medications - up to 3 most recent administrations Medication Order MAR Action Action Date Dose Rate Site acetaminophen (TYLENOL) tablet 1,000 mg 1,000 mg, Oral, Once, On Tue05/01/24 at 1855, For 1 dose Given 05/01/2024 7:33 PM EST 1,000 mg hydrOXYzine (ATARAX) tablet 50 mg 50 mg, Oral, Once, On Tue05/01/24 at 2322, For 1 dose Given 05/01/2024 11:44 PM EST 50 mg documented in this encounter Active and Recently Administered Medications Times are shown in EST. Scheduled Medication Order 04/30/2024 05/01/2024 05/02/2024 acetaminophen (TYLENOL) tablet 1,000 mg (COMPLETED) 1,000 mg, Oral, Once, On Tue05/01/24 at 1855, For 1 dose 1932 (Given - Provider: Susy Chu RN) DULoxetine (CYMBALTA) DR capsule 30 mg 30 mg, Oral, Daily, First dose on Tue05/01/24 at 2025, DO NOT CRUSH OR CHEW. Nasogastric tube: Contents of capsule can be added to a plastic catheter tip syringe with 50 mL of water and gently shaken for 10 seconds before administering through a 12 Grenadian or larger nasogastric tube. 2112 (Given - Provider: Susy Chu RN) 926 (Given - Provider: Leyla Ching RN) hydrOXYzine (ATARAX) tablet 50 mg (COMPLETED) 50 mg, Oral, Once, On Tue05/01/24 at 2322, For 1 dose 2343 (Given - Provider: Solitario Conner RN) levoFLOXacin (LEVAQUIN) tablet 750 mg 750 mg, Oral, Daily, First dose (after last modification) on Tue05/02/24 at 0900, For 3 days, *Hold tube feedings at least 30 minutes before and 30 minutes after administration* *Separate from antacids, iron, and milk products by 2 hours.*, Indication: Other, Specify: tooth infection 926 (Given - Provid er: Leyla Ching RN) metroNIDAZOLE (FLAGYL) tablet 500 mg 500 mg, Oral, 3 times daily, First dose (after last modification) on Tue05/01/24 at 2100, For 10 doses, Indication: Other, Specify: tooth infection 2112 (Given - Provider: Susy Chu RN) 926 (Given - Provider: Leyla Ching RN)1400 (Due)2100 (Due) nicotine (NICODERM CQ) 14 MG/24HR 1 patch 1 patch, Transdermal, Administer over 12 Hours, Daily, First dose on Tue05/01/24 at 1743, For topical use only. Remove previous patch when new patch is applied. May cause sleep disturbances, consider removing after 12 hours if this occurs. 1744 (Medication Applied - Provider: Carey Dasilva RN) 0545 (Medication Removed - Provider: Susy Chu RN)926 (Medication Applied - Provider: Leyla Ching RN)2126 (Due: Medication Removed - Provider: Leyla Ching RN) PRN Medication Order 04/30/2024 05/01/2024 05/02/2024 acetaminophen (TYLENOL) tablet 650 mg 650 mg, Oral, Every 6 hours PRN, pain 1-3 or if patient refuses opiate (if ordered), pain 4-6 or if patient refuses opiate (if ordered), pain 7-10, Starting on Tue05/01/24 at 2023 carboxymethylcellulose ophthalmic gel 1% 1 drop, Each Eye, 3 times daily PRN, eye dryness, Starting on Tue05/01/24 at 2048, OTC Adult Medication Algorithm order 2110 (Given - Provider: Susy Chu RN) QUEtiapine (SEROquel) tablet 25 mg 25 mg, Oral, Every 6 hours PRN, restlessness / irritability, Starting on Tue05/01/24 at 2019 2116 (Given - Provider: Susy Chu RN) documented in this encounter Additional Health Concerns Infection Onset Date Last Indicated Resolved Time Covid Possible 05/01/2024 05/01/2024 05/01/2024 8: 41 PM EST documented as of this encounter Care Teams General Technician Relationship Specialty Start Date End Date Required, No Pcp/Pcp Not [address] [place] [address] PCP - General Doctor Of Podiatry 04/24/24 documented as of this encounter
--- OUTSIDE RECORDS SUMMARY | 2024-05-02 15:42 | XMS_ITS | Encounter Summary ---
[facility] [address] [place] [address] Phone Care Team Providers Care Guest Relations Associate Name Role Phone Required, No Pcp/Pcp Not Primary Care Provider U navailable Reason for Visit * Reason Comments Dental Pain Encounter Details Date Type Department Care Team (Late st Contact Info) Description 04/24/2024 2:05 PM EST - 04/24/2024 4:02 PM EST Emergency [facility] - Emergency Department [address] [place] [address] Dental caries (Primary Dx); Dental infection Discharge Disposition: Home / Self Care Social History Tobacco Use Types Packs/Day Years Used Date Smoking Tobacco: Never Assessed Comments Unknown Sex and Gender Information Value Date Recorded Sex Assigned at Not on file Legal Sex Female 1:21 PM EST Gender Identity Not on file Sexual Orientation Not on file documented as of this encounter Last Filed Vital Signs Vital Sign Reading Time Taken Comments Blood Pressure 139/85 04/24/2024 1:42 PM EST Pulse 108 04/24/2024 1:42 PM EST Temperature 36.2 ??C (97.1 ??F) 04/24/2024 1:42 PM ES T Respiratory Rate 17 04/24/2024 1:42 PM EST Oxygen Saturation 97% 04/24/2024 1:42 PM EST Inhaled Oxygen Concentration - - Weight 83 kg (183 lb) 04/24/2024 1:42 PM EST Height 165.1 cm (5' 5 ) 04/24/2024 1:42 PM EST Body Mass Index 30.45 04/24/2024 1:42 PM EST documented in this encounter Discharge Instructions * Discharge Instructions* Solitario Escalera PA - 04/24/2024 2:18 PM EST You were seen today in the emergency department for evaluation of dental pain. We do note a dental fracture, you are likely beginning to experience an infection and you will need follow-up with the dentist. Please call to schedule follow-up appointment, we have given you the name below the few dentists in the area. [facility] [address] [facility] [address] [place], [place] [phone] M 8a-830p T-F 8a-430p [address] [phone] M- 730a-9p F 730a-5p Tuesday 830a-4p Please continue using ibuprofen 600 to 800 mg once every 6 hours and 1000 mg of Tylenol every 6 hours. For breakthrough pain you may use oxycodone, have given you 3 total tablets of oxycodone for severe pain, do not drink, drive or operate machinery while taking this medication, do not mix this with sedating medications. Please return for worsening facial swelling, fever, difficulty opening or closing your mouth, difficulty swallowing, or if you have any other concerns. * Attachments The following attachments cannot be sent through Care Everywhere. * Dental Pain ED (Greek) documented in this encounter Medications at Time of Discharge levoFLOXacin (LEVAQUIN) 750 MG tablet Take 1 tablet (750 mg) by mouth daily for 10 days 10 tablet 04/24/2024 05/04/2024 metroNIDAZOLE (FLAGYL) 500 MG tablet Take 1 tablet (500 mg) by mouth three times a day for 10 days 30 tablet 04/24/2024 05/04/2024 oxyCODONE (Roxicodone) 5 MG immediate release tablet Take 1 tablet (5 mg) by mouth every four hours as needed for pain 7-10 3 each 04/24/2024 05/01/2024 documented as of this encounter ED Notes * Solitario Escalera PA - 04/24/2024 2:18 PM EST EMERGENCY DEPARTMENT [address] [facility] [address] [phone] HPI No chief complaint on file. HPI 48-year-old female patient presenting for evaluation of dental pain and swelling. Patient has had this ongoing and worsening over the last several days, has a broken tooth over the left lower jaw, feels like there is a bit of swelling there to. Otherwise able to swallow, tolerate secretions, she denies fever. Has been using ibuprofen and acetaminophen in alternating doses but pain is worsening and having difficulty sleeping. She just moved back to the area and does not currently have a dentist.Denies nausea, vomiting, chest pain, shortness of breath, or other acute complaints. Patient History No past medical history on file. There is no problem list on file for this patient. No past surgical history on file. No family history on file. Review of Systems Review of Systems Constitutional: Negative for chills, fever and malaise/fatigue. HENT: Dental pain, dental fracture, dental caries Gastrointestinal: Negative for nausea and vomiting. All other systems reviewed and negative except as noted. Physical Exam ED Triage Vitals [04/24/24 1342] Temp Pulse Resp BP SpO2 97.1 ??F (36.2 ??C) (!) 108 17 139/85 97 % Temp src Heart Rate Source Patient Position BP Location FiO2 (%) (Set) Temporal -- Sitting Left arm -- Physical Exam Vitals and nursing note reviewed. HENT: Head: Normocephalic and atraumatic. Nose: Nose normal. Mouth/Throat: Comments: Examination of patient's mouth reveals dental carry with erosion and fracture of left mandibular first molar, some tenderness, some induration to the area but no obvious fluctuance. No significant asymmetric edema of the left facial soft tissue compared to the right. No submandibular brawniness or tenderness to palpation. No signs of trismus. Tolerating secretions without difficulty. Eyes: General: Right eye: No discharge. Left eye: No discharge. Conjunctiva/sclera: Conjunctivae normal. Cardiovascular: Rate and Rhythm: Normal rate and regular rhythm. Pulses: Normal pulses. Pulmonary: Effort: Pulmonary effort is normal. No respiratory distress. Musculoskeletal: General: Normal range of motion. Cervical back: Normal range of motion and neck supple. Skin: General: Skin is warm and dry. Neurological: General: No focal deficit present. Mental Status: She is alert. Mental status is at baseline. Comments: Oriented appropriately to conversation MDM Differential includes: See MDM Escalation of care to admission or observation considered: Not indicated at this time Prescription drug considered: Oxycodone, PDMP reviewed prior to Rx, no prior on file Diagnostic tests considered: CT considered, not indicated based off overall reassuring examination,lab work would provide no utility in this context Chronic Conditions affecting care include: See MDM Social Determinants of Health significantly affecting care and disposition of this patient include:(Just moved to the area, also has no insurance, went over cost of medications on [facility], she is comfortable with estimated cost of medications) This is a 48-year-old female patient presenting for evaluation of dental pain and some swelling,'s been ongoing for several days, has a broken tooth. Worsening pain/swelling. On examination patient'sleft mandibular first molar does have dental carry and fracture with erosion of the tooth, some surrounding induration to the gumline but no fluctuance, there is some surrounding tenderness. I do notappreciate significant edema of the facial structures on the left compared to the right side, no signs of Don angina, no trismus, able to swallow and tolerate secretions. She is afebrile, heart rate 108 bpm but this is in the context of pain. Otherwise nontoxic. I did discuss with the patient that for definitive management she will need follow-up with dentist and/or oral surgeon. Will be provided with oral surgery and dental information. She has been using ibuprofen and Tylenol and will givea single dose of oxycodone here and 3 total oxycodone tablets. She does have anaphylactic allergiesto penicillin, allergies to sulfa as well as clindamycin. Will use combination levofloxacin and Flagyl. Will prescribe 10 days, patient does understand the importance of follow-up for definitive care. Return precautions were discussed and the patient verbalized understanding agrees with current plan of care. I have evaluated the patient???s current condition, their current or past history of substance abuse, risk factors, and current medications, and the prescribed opioid medication, in my medical opinion, is an appropriate course of treatment based on the medical need of the patient and a non-opiate alternative is not currently appropriate to address their condition. The risks of medication were discussed with the patient and/or other caregiver and they were informed of the option to fill the prescription in a lesser amount than prescribed if desired. The [place] Prescription Awareness Tool (MassPAT) was checked by me. . Scoring No data recorded Solitario Escalera PA 04/24/24 191 * Cris Palomares, RN - 04/24/2024 1:57 PM EST Radha Garrison is a 48 y.o. female presenting with No chief complaint on file. Tooth pain and swelling. Doesn't have dentist - just moved back here. documented in this encounter Plan of Treatment Not on file documented as of this encounter Visit Diagnoses Diagnosis Dental caries- Primary Unspecified dental caries Dental infection documented in this encounter Administered Medications Inactive Administered Medications - up to 3 most recent administrations Medication Order MAR Action Action Date Dose Rate Site levoFLOXacin (LEVAQUIN) tablet 750 mg 750 mg, Oral, Once, On Tue04/24/24 at 1417, For 1 dose, *Hold tube feedings at least 30 minutes before and 30 minutes after administration* *Separate from antacids, iron, and milk products by 2 hours.*, Indication: Other, Specify: Dental infection Given 04/24/2024 3:19 PM EST 750 mg metroNIDAZOLE (FLAGYL) tablet 500 mg 500 mg, Oral, 3 times daily, First dose on Tue04/24/24 at 1513, Indication: Other, Specify: Dental Given 04/24/2024 3:19 PM EST 500 mg oxyCODONE (ROXICODONE) immediate release tablet 5 mg 5 mg, Oral, Once, On Tue04/24/24 at 1407, For 1 dose, Per Opioid Hold Parameters Policy: Hold for RR less than 10, SBP less than 90, or sedation (RASS -2 in Critical Care Areas, RASS -1 in all other areas). Refer to Opioid Hold Parameters Policy Given 04/24/2024 3:19 PM EST 5 mg documented in this encounter Active and Recently Administered Medications Times are shown in EST. Scheduled Medication Order 04/22/2024 04/23/2024 04/24/2024 levoFLOXacin (LEVAQUIN) tablet 750 mg (COMPLETED) 750 mg, Oral, Once, On Tue04/24/24 at 1417, For 1 dose, *Hold tube feedings at least 30 minutes before and 30 minutes after administration* *Separate from antacids, iron, and milk products by 2 hours.*, Indication: Other, Specify: Dental infection 151 (Given - Provid er: Rusty Pollack RN) metroNIDAZOLE (FLAGYL) tablet 500 mg 500 mg, Oral, 3 times daily, First dose on Tue04/24/24 at 1513, Indication: Other, Specify: Dental 151 (Given - Provid er: Rusty Pollack RN) oxyCODONE (ROXICODONE) immediate release tablet 5 mg (COMPLETED) 5 mg, Oral, Once, On Tue04/24/24 at 1407, For 1 dose, Per Opioid Hold Parameters Policy: Hold for RR less than 10, SBP less than 90, or sedation (RASS -2 in Critical Care Areas, RASS -1 in all other areas). Refer to Opioid Hold Parameters Policy 1519 (Given - Provid er: Rusty Pollack RN) documented in this encounter Care Teams Guest Relations Associate Relationship Specialty Start Date End Date Required, No Pcp/Pcp Not [address] [place] [address] PCP - General Laborer [employer] 04/24/24 documented as of this encounter
--- OUTSIDE RECORDS SUMMARY | 2024-05-02 15:42 | XMS_ITS | Encounter Summary ---
Author Organization [facility] Address [address] [place] [address] Phone Care Team Providers Care Internal Combustion Engine Subassembler Name Role Phone Required, No Pcp/Pcp Not Primary Care Provider U navailable Encounter Details Date Type Department Care Team (Latest Contact Info) Description 05/01/2024 Travel Social History Tobacco Use Types Packs/Day Years Used Date Smoking Tobacco: Never Assessed Comments Unknown Sex and Gender Information Value Date Recorded Sex Assigned at Not on file Legal Sex Female 1:21 PM EST Gender Identity Not on file Sexual Orientation Not on file documented as of this encounter Plan of Treatment Not on file documented as of this encounter Visit Diagnoses Not on filedocumented in this encounter Additional Health Concerns Infection Onset Date Last Indicated Resolved Time Covid Possible 05/01/2024 05/01/2024 05/01/2024 8: 41 PM EST documented as of this encounter Care Teams Internal Combustion Engine Subassembler Relationship Specialty Start Date End Date Required, No Pcp/Pcp Not [address] [place] [address] PCP - General Production Grader 04/24/24 documented as of this encounter
[2024-05-02] MEDS: Flu Vacc TS2024-25(6mos up)/PF 0.5 ML SYRINGE IM (16:40)
[2024-05-02] MEDS: levoFLOXacin 750 MG TABLET PO (17:26)
--- NOTE | 2024-05-02 19:04 | PC.ADMIT ---
Radha is a 48 year old woman who was admitted to at 1445 from [place] on a CV for depression and SI. Her diagnoses include PTSD, depression, and asthma. She currently has a tooth infection and is taking cipro and flagyl for it. Radha recently moved back to [place] from [place]. She was engaged but that relationship recently ended and she is heartbroken. Everything reminds her of her fiance. Upon arrival at the unit she states that she is not currently experiencing SI/HI/AVH but that SI comes and goes. She is highly depressed. Her speech is clear, linear, and normal, with a constricted affect. She was pleasant and cooperative throughout the admission process. Her tox screen was negative. She reports that she stopped using methamphetamines 8 months ago after 8-9 years of use. She also reports a distant history of taking pills. She no longer engages in any illicit substance use. She has no current PCP or mental health providers and states that she has not taken daily prescription medications for many years. She had one previous admission in her late teens following a suicide attempt. She received a flu shot. Smoking consult ordered due to longstanding cigarette use. He is placed on 15 minute safety checks.?
[2024-05-02 19:50] VITALS: BP 138/82; PULSE 94; TEMP 37.2; O2SAT 98
[2024-05-02 20:09] LABS: Alanine Aminotransferase 20 U/L (0-31); Albumin Level 3.8 g/dL (3.5-5.0); Alkaline Phosphatase 112 U/L (39-117); Anion Gap 14 (12-20); Aspartate Amino Transferase 25 U/L (5-31); Bilirubin Total 0.2 mg/dL (0.0-1.0); Blood Urea Nitrogen 12 mg/dL (9-16); Calcium 8.8 mg/dL (8.4-10.2); Carbon Dioxide 20 mmol/L (22-29); Chloride 107 mmol/L (96-108); Creatinine Clr Calc Pharmacy 98.5; Estimated Glomerular Filt Rate > 60; Glucose Random 100 mg/dL (60-115); Potassium 4.6 mmol/L (3.3-5.1); Sodium 136 mmol/L (135-145)
[2024-05-02] MEDS: traZODone HCL 50 MG TABLET PO (20:50)
[2024-05-02] MEDS: metroNIDAZOLE 500 MG TABLET PO (20:51)
[2024-05-02] MEDS: Nicotine Polacrilex 2 MG GUM 4 MG BUCCAL (20:57)
--- NOTE | 2024-05-02 22:56 | PC.NURSE ---
Patient reports utilizing Mirtazapine for restless leg syndrome outpatient. call center operations manager provider notified. 15 mg Mirtazapine ordered and administered. Will monitor for effect.
[2024-05-02] MEDS: Mirtazapine 15 MG TABLET PO (23:39)
[2024-05-03 07:00] VITALS: BMI 28.5
[2024-05-03 08:00] VITALS: BP 125/79; PULSE 84; RESP 16; TEMP 36.4; O2SAT 97
[2024-05-03] MEDS: metroNIDAZOLE 500 MG TABLET PO ×3 (08:51→21:21)
[2024-05-03 09:47] LABS: Estimated Average Glucose 97 mg/dL; Hemoglobin A1C 117.0805 umol/L; Total Hemoglobin (HGBA1C) 3728.5182 umol/L
[2024-05-03 10:22] LABS: Folate 5.7 ng/mL (> or = 4.0); Vitamin B12 355 pg/mL (200-900)
--- NOTE | 2024-05-03 11:34 | P.HPPS_ITS ---
HPI Date of Service: 05/03/24 Chief Complaint: unspecified depressive disorder Sources of Information: patient interviewed, chart reviewed and crisis/core team assessment reviewed HPI Subjective Notes: Conditional Voluntary Narrative: Patient is a 48 year female with history of MDD, opiate use disorder, methamphetamine use disorder who presented to ER due to suicidal ideation secondary to life stressors. Per crisis report, she presented to ED with increased suicidal ideation for the last 2 weeks. History suicide attempt at 16 years old. Recently moved back to [place] from [place] a month ago. Recent break-up with fiance has been stressful. Patient's cousin suggested for her to go to ER after speaking with patient. Patient reports poor sleep and appetite. Is unable to get out of bed since she moved back from [place]. denies HI/AH/VH. Utox negative. During admission assessment, patient presents alert and oriented x3. Calm and cooperative. Patient reports feeling depressed ; patient stated, my fiancee and I split up and I was feeling suicidal . Patient reports she has been living in [place] for the last 16 years and moved back to [place] a month ago. She reports helping her ex-boyfriend's business account manager, get him out of residential and forgot to call her fiance on his birthday, which was the reason for them breaking up. She reports feeling suicidal but did not have a plan. denied SI/HI/VH/AH at this time. Patient reports she does not have outpatient psychiatric providers, as being new to the area, but would like outpatient referrals. history of taking Prozac when she was a teenager, but does not recall effect. reports poor sleep. Hx of opioid use and smoking methamphetamine; patient reports she currently not abusing any substances and has been sober for the last year. Past Psychiatric History: Does not have outpatient psychiatric providers. History of inpatient psychiatric hospitalization at the age of 16 due to overdose on medications. Patient states she has not been hospitalized since. Medical Evaluation Reviewed: Yes PMFSH Family History: Mother: Schizophrenia Social History: Lives with friend. Single. Two kids who live in [place] with their father. Unemployed. Substance History: History of opiate and methamphetamine use. Trauma History: Denies Diagnostics Vital Signs (24Hr): Vital Signs - 24 hr 05/02/24 14:37 05/02/24 19:50 05/03/24 08:00 Temperature 97.5 F 98.9 F 97.6 F Pulse Rate 71 94 84 Respiratory Rate 16 16 Blood Pressure 148/82 H 138/82 125/79 Pulse Oximetry 97 98 97 Oxygen Delivery Method Room Air Room Air Room Air BMI result Body Mass Index 27.9 Labs 05/02/24 19:40 Labs: Laboratory Results - last 48 hr 05/02/24 05/03/24 19:40 09:11 Sodium 136 Potassium 4.6 Chloride 107 Carbon Dioxide 20 L Anion Gap 14 BUN 12 Creatinine 0.73 Estim Creat Clear Calc 98.5 Estimated GFR > 60 Random Glucose 100 Estimat Average Glucose 97 Hemoglobin A1c % 5.0 Calcium 8.8 Total Bilirubin 0.2 AST 25 ALT 20 Alkaline Phosphatase 112 Total Protein 7.0 Albumin 3.8 Vitamin B12 355 Folate 5.7 Meds/Allergies Meds Home Medications ?Medication ?Instructions ?Recorded ?Confirmed ?Type calcium carbonate 550 mg chewable 550 mg PO QID PRN Heartburn 05/02/24 05/02/24 History tablet Allergies Allergies Allergy/AdvReac Type Severity Reaction Status Date / Time aspirin Allergy Rash Verified 05/02/24 15:40 clindamycin Allergy Rash Verified 05/02/24 15:40 Latex, Natural Rubber Allergy Rash Verified 05/02/24 15:40 Penicillins Allergy Anaphylaxis Verified 05/02/24 15:40 Sulfa (Sulfonamide Allergy Rash Verified 05/02/24 15:40 Antibiotics) Mental Status Exam Mental Status Exam Patient Appearance: Well Grooomed Patient Orientation: Person, Place, Time and Situation Level of Consciousness: Awake and Appropriate Patient Behavior: Appropriate, Cooperative and Good Eye Contact Mood Description: Calm and Depressed Affect Description: Constricted Ability to Follow Directions: Good Speech Pattern: Clear Memory Description: Intact Hallucinations: None Delusions: Not Present Thought Process: Intact Thought Content: positive for Intact Judgement: Fair Assessment & Plan Assessment & Plan (1) MDD (major depressive disorder), recurrent episode: Status: Acute Code(s): F33.9 - Major depressive disorder, recurrent, unspecified (2) Opioid use disorder: Status: Acute Code(s): F11.90 - Opioid use, unspecified, uncomplicated (3) Methamphetamine abuse in remission: Status: Acute Code(s): F15.11 - Other stimulant abuse, in remission Plan Patient is a 48 year female with history of MDD, opiate use disorder, methamphetamine use disorder who presented to ER due to suicidal ideation secondary to life stressors. Plan: CV 15 safety checks Start: Remeron 15mg PO bedtime clonidine 0.1mg PO BID PRN anxiety encourage groups referral to outpatient providers discharge planning Patient educated on: diagnosis and medication risk/benefits Reason for continued inpatient stay Substantial Risk for: harm to self and med/psych decompensation Statement Statement: I have reviewed the history and physical and performed a pertinent examination on my patient. No changes have occurred unless specified. If the History and Physical was not performed prior to admission, the Hospitalist's service will be consulted for completing the admission physical. Time Spent With Patient Time: Total time managing care of this patient today _60___ minutes.
[2024-05-03] MEDS: Nicotine Polacrilex 2 MG GUM 4 MG BUCCAL ×2 (12:52→15:35)
[2024-05-03] MEDS: Nicotine 21 MG PATCH.TD24 TRANSDERMA (12:52)
--- NOTE | 2024-05-03 13:49 | P.CONHOSP_ITS ---
History of Present Illness Data of Consult Service Date: 05/03/24 Primary Care Provider: Unknown Physician HPI Reason for consult: Admission H&P Pt is a 48-year-old female with a PMH significant for mild intermittent asthma and mood disorder who was admitted to Psychiatric with hospitalist consult for admission H&P. Pt reports she was diagnosed with asthma as a child and only uses rescue inhaler ?once in a blue parra?. Last used inhaler a few weeks ago. Does not follow regularly with PCP and reports last yearly wellness visit over 15-20 years ago. Denies any acute medical complaints at this time. No fever, chills, nausea, vomiting, abdominal pain. No diarrhea. Denies shortness or breath or difficulty breathing. No cough. Denies chest pain/pressure, or palpitations. Review of Systems 2 Review of Systems: Pt has no acute medical complaints at this time [facility] Social History Household Members: Other Housing: House Do you presently have visiting nurse or other home services: No Patient Tobacco Use Status: Current everyday Tobacco user Tobacco use type: Cigarette Smoked in Last 30 Days: Yes e-Cigarette/Vaping Use: Never Used Patient Interested in Nicotine Replacement: Yes Patient Given Instructions on How to Stop Smoking: Yes Date Education Initiated: 05/02/24 Second Hand Smoke Exposure: No Use of substances other than those prescribed or required for medical reasons: No Substance Use Type: Methamphetamine Currently Displaying Signs/Symptoms of Drug Intoxication Withdrawal: No Other Past Substance Use Problem:: Methamphetamines used for 8-9 but quit 7 months ago Any prior treatment program specific to substance use: Yes (for pills many years ago) Have you been hit, kicked, punched, or otherwise hurt by someone within the past year? If so, by whom?: No Do you feel safe in your current relationship?: No Current Relationship Is there a partner from a previous relationship who is making you feel unsafe now?: No Are you made to feel afraid or neglected: No Advance Directives: No Advance Directives Information Provided: Yes Do you have thoughts of harming others: None Do you have a plan to hurt others: No Plan Recently lost weight without trying: No How much weight loss: Not applicable Eating poorly because of decreased appetite: No Nutrition screen score: 0 Nutrition Risks: No Nutritional Risk Patient : No : No Poor oral hygiene: No Meds Allergies Allergy/AdvReac Type Severity Reaction Status Date / Time aspirin Allergy Rash Verified 05/02/24 15:40 clindamycin Allergy Rash Verified 05/02/24 15:40 Latex, Natural Rubber Allergy Rash Verified 05/02/24 15:40 Penicillins Allergy Anaphylaxis Verified 05/02/24 15:40 Sulfa (Sulfonamide Allergy Rash Verified 05/02/24 15:40 Antibiotics) Active Medications: Current Medications Acetaminophen (Acetaminophen 325 Mg Tablet) 650 mg PO Q6H PRN PRN Reason: Headache/Pain, Scale 1-10 Al Hydroxide/Mg Hydroxide (Magnesium Hydrox/Alum Hydrox 30 Ml Oral.Susp) 30 ml PO Q6H PRN PRN Reason: Heartburn/Nausea Hydroxyzine HCl (Hydroxyzine Hcl 25 Mg Tablet) 25 mg PO Q6H PRN PRN Reason: mild anxiety Levofloxacin (Levofloxacin 750 Mg Tablet) 750 mg PO Q24H [facility] Stop: 05/04/24 10:00 Last Admin: 05/02/24 17:26 Dose: 750 mg Magnesium Hydroxide (Milk Of Magnesia 30 Ml Oral.Susp) 30 ml PO DAILY PRN PRN Reason: Constipation Metronidazole (Metronidazole 500 Mg Tablet) 500 mg PO TID JUNO Stop: 05/04/24 22:00 Last Admin: 05/03/24 08:51 Dose: 500 mg Mirtazapine (Mirtazapine 15 Mg Tablet) 15 mg PO BEDTIME [facility] Last Admin: 05/02/24 23:39 Dose: 15 mg Nicotine (Nicotine 21 Mg Patch.Td24) 21 mg TRANSDERMA DAILY PRN PRN Reason: nicotine cravings Last Admin: 05/03/24 12:52 Dose: 21 mg Nicotine Polacrilex (Nicotine Polacrilex 2 Mg Gum) 4 mg BUCCAL Q2H PRN PRN Reason: Nicotine Cravings Last Admin: 05/03/24 12:52 Dose: 2 mg Trazodone HCl (Trazodone Hcl 50 Mg Tablet) 50 mg PO BEDTIME MRX1 PRN PRN Reason: Insomnia Last Admin: 05/02/24 20:50 Dose: 50 mg Home Medications ?Medication ?Instructions ?Recorded ?Confirmed ?Last Taken ?Type calcium carbonate 550 mg chewable 550 mg PO QID PRN Heartburn 05/02/24 05/02/24 Unknown History tablet Physical Exam 2 Vital Signs and Narrative: Vital Signs: Last Vital Signs Temp 97.6 F 05/03/24 08:00 Pulse 84 05/03/24 08:00 Resp 16 05/03/24 08:00 BP 125/79 05/03/24 08:00 Pulse Ox 97 05/03/24 08:00 O2 Del Method Room Air 05/03/24 08:00 BMI result Body Mass Index 28.5 General: AOx3, no acute distress Resp: CTA bilaterally CVS: S1, S2, RRR GI: +BS, NT, no distention Skin: Warm, dry Neuro: Cranial nerves II-XII grossly intact bilaterally. Motor grossly intact bilaterally Extremities: No edema Psych: Appropriate affect Results Labs 05/02/24 19:40 Labs: Laboratory Results - last 24 hr 05/02/24 05/03/24 19:40 09:11 Anion Gap 14 Estim Creat Clear Calc 98.5 Estimated GFR > 60 Random Glucose 100 Estimat Average Glucose 97 Hemoglobin A1c % 5.0 Calcium 8.8 Total Bilirubin 0.2 AST 25 ALT 20 Alkaline Phosphatase 112 Total Protein 7.0 Albumin 3.8 Vitamin B12 355 Folate 5.7 Assessment and Plan (1) Medical clearance for psychiatric admission: Status: Acute Plan Pt is a 48-year-old female with a PMH significant for mild intermittent asthma and mood disorder who was admitted to Psychiatric with hospitalist consult for admission H&P. Mood disorder Plan as per Psychiatry Mild intermittent asthma Not in acute exacerbation Albuterol rescue inhaler Pt otherwise has no acute medical complaints or chronic medical conditions. Will sign off for now. Thank you for allowing us to participate in the care of this pt. Please re-consult if any acute issue or need arises.
[2024-05-03] MEDS: hydrOXYzine HCL 25 MG TABLET PO (15:35)
[2024-05-03 15:43] VITALS: BMI 28.5
[2024-05-03 16:31] VITALS: BP 155/83
[2024-05-03] MEDS: levoFLOXacin 750 MG TABLET PO (16:31)
[2024-05-03] MEDS: cloNIDine HCL 0.1 MG TABLET PO ×2 (16:31→21:25)
[2024-05-03 16:34] VITALS: PULSE 106
[2024-05-03 20:00] VITALS: BP 125/75; PULSE 96; TEMP 36.9; O2SAT 98
[2024-05-03] MEDS: Mirtazapine 15 MG TABLET PO (21:21)
[2024-05-03] MEDS: traZODone HCL 50 MG TABLET PO (21:21)
[2024-05-04 08:00] VITALS: BP 102/57; PULSE 63; RESP 16; TEMP 36.3; O2SAT 97
[2024-05-04] MEDS: metroNIDAZOLE 500 MG TABLET PO ×3 (09:25→20:30)
[2024-05-04] MEDS: hydrOXYzine HCL 25 MG TABLET PO ×2 (09:25→20:30)
[2024-05-04] MEDS: Nicotine 21 MG PATCH.TD24 TRANSDERMA (09:25)
[2024-05-04] MEDS: Acetaminophen 325 MG TABLET 650 MG PO (09:26)
[2024-05-04 09:30] VITALS: BP 110/70
[2024-05-04] MEDS: cloNIDine HCL 0.1 MG TABLET PO ×2 (09:30→14:35)
[2024-05-04 10:21] LABS: Cholesterol 148 mg/dL (<200); HDL Cholesterol 52 mg/dL (>40); LDL Cholesterol Calculated 65 mg/dL (<100); Magnesium 1.9 mg/dL (1.6-2.6); Triglycerides 157 mg/dL (<150)
[2024-05-04 10:38] LABS: Free T4 (Free Thyroxine) 1.01 ng/dL (0.71-1.85); Thyroid Stimulating Hormone 3.64 uIU/mL (0.32-4.0)
[2024-05-04 14:35] VITALS: BP 103/67
--- NOTE | 2024-05-04 14:48 | HO.PSYCHPN ---
Subjective Subjective Date of Service: 05/04/24 Reason For Visit: unspecified depressive disorder Interim History: Patient continues to reports feeling depressed; pt stated, I feel depressed as hell today because it's Nicole's Day and I don't have anyone . She reports sleeping well last night. denies SI/HI/VH/AH. encouraged to attend groups. Medication Compliance: Yes Side effects from medications: No Mental Status Exam Mental Status Exam Patient Appearance: Well Grooomed Patient Orientation: Person, Place, Time and Situation Level of Consciousness: Awake and Appropriate Patient Behavior: Appropriate, Cooperative and Good Eye Contact Mood Description: Calm and Depressed Affect Description: Constricted Ability to Follow Directions: Good Speech Pattern: Clear Memory Description: Intact Hallucinations: None Delusions: Not Present Thought Process: Intact Thought Content: positive for Intact Diagnostics Vital Signs (24Hr): Vital Signs - 24 hr 05/03/24 16:31 05/03/24 16:34 05/03/24 20:00 Temperature 98.4 F Pulse Rate 106 H 96 Respiratory Rate Blood Pressure 155/83 H 125/75 Pulse Oximetry 98 Oxygen Delivery Method Room Air 05/04/24 08:00 05/04/24 09:30 05/04/24 14:35 Temperature 97.3 F Pulse Rate 63 Respiratory Rate 16 Blood Pressure 102/57 L 110/70 103/67 Pulse Oximetry 97 Oxygen Delivery Method Room Air BMI result Body Mass Index 28.5 Labs 05/02/24 19:40 Labs: Laboratory Results - last 48 hr 05/02/24 05/03/24 05/04/24 19:40 09:11 09:19 Sodium 136 Potassium 4.6 Chloride 107 Carbon Dioxide 20 L Anion Gap 14 BUN 12 Creatinine 0.73 Estim Creat Clear Calc 98.5 Estimated GFR > 60 Random Glucose 100 Estimat Average Glucose 97 Hemoglobin A1c % 5.0 Calcium 8.8 Magnesium 1.9 Total Bilirubin 0.2 AST 25 ALT 20 Alkaline Phosphatase 112 Total Protein 7.0 Albumin 3.8 Triglycerides 157 H Cholesterol 148 LDL Cholesterol, Calc 65 HDL Cholesterol 52 Vitamin B12 355 Folate 5.7 TSH 3.64 Free T4 1.01 Medications Medications Current Medications Acetaminophen (Acetaminophen 325 Mg Tablet) 650 mg PO Q6H PRN PRN Reason: Headache/Pain, Scale 1-10 Last Admin: 05/04/24 09:26 Dose: 650 mg Al Hydroxide/Mg Hydroxide (Magnesium Hydrox/Alum Hydrox 30 Ml Oral.Susp) 30 ml PO Q6H PRN PRN Reason: Heartburn/Nausea Albuterol Sulfate (Albuterol Sulfate 90 Mcg 8 Gm Inhaler) 2 puff INHALE RQ6H PRN PRN Reason: Shortness of Breath/Wheezing Benzocaine (Benzocaine 20 % Oral Gel 9 Gm Tube) 1 appl MUCOUS MEM QID PRN; Protocol PRN Reason: dental pain Clonidine HCl (Clonidine Hcl 0.1 Mg Tablet) 0.1 mg PO BID PRN; Protocol PRN Reason: Anxiety Last Admin: 05/04/24 14:35 Dose: 0.1 mg Hydroxyzine HCl (Hydroxyzine Hcl 25 Mg Tablet) 25 mg PO Q6H PRN PRN Reason: mild anxiety Last Admin: 05/04/24 09:25 Dose: 25 mg Ibuprofen (Ibuprofen 800 Mg Tablet) 800 mg PO Q8H PRN PRN Reason: severe dental pain Magnesium Hydroxide (Milk Of Magnesia 30 Ml Oral.Susp) 30 ml PO DAILY PRN PRN Reason: Constipation Metronidazole (Metronidazole 500 Mg Tablet) 500 mg PO TID JUNO Stop: 05/04/24 22:00 Last Admin: 05/04/24 09:25 Dose: 500 mg Mirtazapine (Mirtazapine 15 Mg Tablet) 15 mg PO BEDTIME [facility] Last Admin: 05/03/24 21:21 Dose: 15 mg Nicotine (Nicotine 21 Mg Patch.Td24) 21 mg TRANSDERMA DAILY PRN PRN Reason: nicotine cravings Last Admin: 05/04/24 09:25 Dose: 21 mg Nicotine Polacrilex (Nicotine Polacrilex 2 Mg Gum) 4 mg BUCCAL Q2H PRN PRN Reason: Nicotine Cravings Last Admin: 05/03/24 15:35 Dose: 4 mg Trazodone HCl (Trazodone Hcl 50 Mg Tablet) 50 mg PO BEDTIME MRX1 PRN PRN Reason: Insomnia Last Admin: 05/03/24 21:21 Dose: 50 mg Allergies Allergies Allergy/AdvReac Type Severity Reaction Status Date / Time aspirin Allergy Rash Verified 05/02/24 15:40 clindamycin Allergy Rash Verified 05/02/24 15:40 Latex, Natural Rubber Allergy Rash Verified 05/02/24 15:40 Penicillins Allergy Anaphylaxis Verified 05/02/24 15:40 Sulfa (Sulfonamide Allergy Rash Verified 05/02/24 15:40 Antibiotics) Assessment & Plan Assessment & Plan (1) MDD (major depressive disorder), recurrent episode: Status: Acute Code(s): F33.9 - Major depressive disorder, recurrent, unspecified (2) Opioid use disorder: Status: Acute Code(s): F11.90 - Opioid use, unspecified, uncomplicated (3) Methamphetamine abuse in remission: Status: Acute Code(s): F15.11 - Other stimulant abuse, in remission Plan Patient is a 48 year female with history of MDD, opiate use disorder, methamphetamine use disorder who presented to ER due to suicidal ideation secondary to life stressors. Plan: CV 15 safety checks Start: Remeron 15mg PO bedtime clonidine 0.1mg PO BID PRN anxiety encourage groups referral to outpatient providers discharge planning 05/04: Patient continues to reports feeling depressed; pt stated, I feel depressed as hell today because it's Nicole's Day and I don't have anyone . She reports sleeping well last night. denies SI/HI/VH/AH. encouraged to attend groups. Patient educated on: diagnosis, medication risk/benefits and therapeutic strategies Reason for continued inpatient stay Substantial Risk for: med/psych decompensation Time Spent With Patient Time: Total time managing care of this patient today _20___ minutes.
[2024-05-04 20:00] VITALS: BP 114/67; PULSE 82; RESP 16; TEMP 36.4; O2SAT 99
[2024-05-04] MEDS: Mirtazapine 15 MG TABLET PO (20:28)
[2024-05-04] MEDS: Nicotine Polacrilex 2 MG GUM 4 MG BUCCAL (20:30)
[2024-05-04] MEDS: traZODone HCL 50 MG TABLET PO (20:30)
[2024-05-05 08:00] VITALS: BP 99/56; PULSE 66; RESP 16; TEMP 36.3; O2SAT 98
--- NOTE | 2024-05-05 09:24 | HO.PSYCHPN ---
Subjective Subjective Date of Service: 05/05/24 Reason For Visit: unspecified depressive disorder Subjective Notes: Conditional Voluntary Healthcare Proxy: No Guardianship: No Medical Problems Affecting Mental Status: No Interim History: Pt seen and reviewed with the team. Continues with depressive sx. Discussed adding another agent for assistance. She agrees. Hx of use of prozac which was ineffective. Medication Compliance: Yes Side effects from medications: No Attending Groups: Yes Review of Systems Acute medical concerns: No Medical Review of Systems: unchanged Review of Systems Review of Systems Yes all other systems are reviewed and are negative Mental Status Exam Mental Status Exam Patient Appearance: Appropriate Patient Orientation: Person, Place, Time and Situation Level of Consciousness: Alert Patient Behavior: Talkative and Good Eye Contact Mood Description: Depressed Affect Description: Flat Patient Cognition Impaired: No Ability to Follow Directions: Good Speech Pattern: Spontaneous Speech Memory Description: Intact Hallucinations: None Delusions: Not Present Perceptual Disturbances: Depersonalization Thought Process: Rumination Judgement: Fair Diagnostics Vital Signs (24Hr): Vital Signs - 24 hr 05/04/24 09:30 05/04/24 14:35 05/04/24 20:00 Temperature 97.6 F Pulse Rate 82 Respiratory Rate 16 Blood Pressure 110/70 103/67 114/67 Pulse Oximetry 99 Oxygen Delivery Method Room Air BMI result Body Mass Index 28.5 Labs 05/02/24 19:40 Labs: Laboratory Results - last 48 hr 05/03/24 05/04/24 09:11 09:19 Estimat Average Glucose 97 Hemoglobin A1c % 5.0 Magnesium 1.9 Triglycerides 157 H Cholesterol 148 LDL Cholesterol, Calc 65 HDL Cholesterol 52 Vitamin B12 355 Folate 5.7 TSH 3.64 Free T4 1.01 Medications Medications Current Medications Acetaminophen (Acetaminophen 325 Mg Tablet) 650 mg PO Q6H PRN PRN Reason: Headache/Pain, Scale 1-10 Last Admin: 05/04/24 09:26 Dose: 650 mg Al Hydroxide/Mg Hydroxide (Magnesium Hydrox/Alum Hydrox 30 Ml Oral.Susp) 30 ml PO Q6H PRN PRN Reason: Heartburn/Nausea Albuterol Sulfate (Albuterol Sulfate 90 Mcg 8 Gm Inhaler) 2 puff INHALE RQ6H PRN PRN Reason: Shortness of Breath/Wheezing Benzocaine (Benzocaine 20 % Oral Gel 9 Gm Tube) 1 appl MUCOUS MEM QID PRN; Protocol PRN Reason: dental pain Clonidine HCl (Clonidine Hcl 0.1 Mg Tablet) 0.1 mg PO BID PRN; Protocol PRN Reason: Anxiety Last Admin: 05/04/24 14:35 Dose: 0.1 mg Hydroxyzine HCl (Hydroxyzine Hcl 25 Mg Tablet) 25 mg PO Q6H PRN PRN Reason: mild anxiety Last Admin: 05/04/24 20:30 Dose: 25 mg Ibuprofen (Ibuprofen 800 Mg Tablet) 800 mg PO Q8H PRN PRN Reason: severe dental pain Magnesium Hydroxide (Milk Of Magnesia 30 Ml Oral.Susp) 30 ml PO DAILY PRN PRN Reason: Constipation Mirtazapine (Mirtazapine 15 Mg Tablet) 15 mg PO BEDTIME JUNO Last Admin: 05/04/24 20:28 Dose: 15 mg Nicotine (Nicotine 21 Mg Patch.Td24) 21 mg TRANSDERMA DAILY PRN PRN Reason: nicotine cravings Last Admin: 05/04/24 09:25 Dose: 21 mg Nicotine Polacrilex (Nicotine Polacrilex 2 Mg Gum) 4 mg BUCCAL Q2H PRN PRN Reason: Nicotine Cravings Last Admin: 05/04/24 20:30 Dose: 4 mg Trazodone HCl (Trazodone Hcl 50 Mg Tablet) 50 mg PO BEDTIME MRX1 PRN PRN Reason: Insomnia Last Admin: 05/04/24 20:30 Dose: 50 mg Allergies Allergies Allergy/AdvReac Type Severity Reaction Status Date / Time aspirin Allergy Rash Verified 05/02/24 15:40 clindamycin Allergy Rash Verified 05/02/24 15:40 Latex, Natural Rubber Allergy Rash Verified 05/02/24 15:40 Penicillins Allergy Anaphylaxis Verified 05/02/24 15:40 Sulfa (Sulfonamide Allergy Rash Verified 05/02/24 15:40 Antibiotics) Assessment & Plan Assessment & Plan (1) MDD (major depressive disorder), recurrent episode: Status: Acute Code(s): F33.9 - Major depressive disorder, recurrent, unspecified (2) Opioid use disorder: Status: Acute Code(s): F11.90 - Opioid use, unspecified, uncomplicated (3) Methamphetamine abuse in remission: Status: Acute Code(s): F15.11 - Other stimulant abuse, in remission Plan Patient is a 48 year female with history of MDD, opiate use disorder, methamphetamine use disorder who presented to ER due to suicidal ideation secondary to life stressors. Plan: CV 15 safety checks Start: Remeron 15mg PO bedtime clonidine 0.1mg PO BID PRN anxiety encourage groups referral to outpatient providers discharge planning 05/04: Patient continues to reports feeling depressed; pt stated, I feel depressed as hell today because it's Nicole's Day and I don't have anyone . She reports sleeping well last night. denies SI/HI/VH/AH. encouraged to attend groups. 05/05/24: Lexapro 5 mg daily. Reason for continued inpatient stay Substantial Risk for: rapid decompensation Time Spent With Patient Time: Total time managing care of this patient today ____ minutes.
[2024-05-05] MEDS: Nicotine 21 MG PATCH.TD24 TRANSDERMA (10:52)
[2024-05-05] MEDS: hydrOXYzine HCL 25 MG TABLET PO ×2 (10:52→18:17)
[2024-05-05 18:43] VITALS: BP 110/70
[2024-05-05] MEDS: cloNIDine HCL 0.1 MG TABLET PO (18:43)
[2024-05-05 20:00] VITALS: BP 106/57; PULSE 74; RESP 16; TEMP 36.4; O2SAT 99
[2024-05-05] MEDS: Mirtazapine 15 MG TABLET PO (20:46)
[2024-05-05] MEDS: traZODone HCL 50 MG TABLET PO (22:24)
[2024-05-06 08:00] VITALS: BP 122/77; PULSE 77; RESP 16; TEMP 37.2; O2SAT 98
[2024-05-06] MEDS: Escitalopram Oxalate 5 MG TABLET PO (09:25)
[2024-05-06] MEDS: Nicotine 21 MG PATCH.TD24 TRANSDERMA (09:25)
--- NOTE | 2024-05-06 09:33 | HO.PSYCHPN ---
Subjective Subjective Date of Service: 05/06/24 Reason For Visit: unspecified depressive disorder Interim History: Tolerating escitalopram Reports LUQ pain, L shoulder pain. Believes she has a hernia, and rotator cuff injury. Also reports R eye having a black dot in her vision (will need OP follow up for this issue) Xray/ultrasound ordered for sx. Reports depressive sx still are high-team reports however pt appears more engaged in milieu and with improved participation. Reports sleep is improved. Medication Compliance: Yes Side effects from medications: No Attending Groups: Intermittent Review of Systems Acute medical concerns: No Medical Review of Systems: unchanged Review of Systems Review of Systems as noted in HPI Mental Status Exam Mental Status Exam Patient Appearance: Appropriate Patient Orientation: Person, Place, Time and Situation Level of Consciousness: Alert Patient Behavior: Talkative and Good Eye Contact Mood Description: Depressed Affect Description: Flat Patient Cognition Impaired: No Ability to Follow Directions: Good Speech Pattern: Spontaneous Speech Memory Description: Intact Hallucinations: None Delusions: Not Present Perceptual Disturbances: Depersonalization Thought Process: Rumination Judgement: Fair Diagnostics Vital Signs (24Hr): Vital Signs - 24 hr 05/05/24 18:43 05/05/24 20:00 Temperature 97.6 F Pulse Rate 74 Respiratory Rate 16 Blood Pressure 110/70 106/57 L Pulse Oximetry 99 Oxygen Delivery Method Room Air BMI result Body Mass Index 28.5 Labs 05/02/24 19:40 Labs: Laboratory Results - last 48 hr 05/04/24 09:19 Magnesium 1.9 Triglycerides 157 H Cholesterol 148 LDL Cholesterol, Calc 65 HDL Cholesterol 52 TSH 3.64 Free T4 1.01 Medications Medications Current Medications Acetaminophen (Acetaminophen 325 Mg Tablet) 650 mg PO Q6H PRN PRN Reason: Headache/Pain, Scale 1-10 Last Admin: 05/04/24 09:26 Dose: 650 mg Al Hydroxide/Mg Hydroxide (Magnesium Hydrox/Alum Hydrox 30 Ml Oral.Susp) 30 ml PO Q6H PRN PRN Reason: Heartburn/Nausea Albuterol Sulfate (Albuterol Sulfate 90 Mcg 8 Gm Inhaler) 2 puff INHALE RQ6H PRN PRN Reason: Shortness of Breath/Wheezing Benzocaine (Benzocaine 20 % Oral Gel 9 Gm Tube) 1 appl MUCOUS MEM QID PRN; Protocol PRN Reason: dental pain Clonidine HCl (Clonidine Hcl 0.1 Mg Tablet) 0.1 mg PO BID PRN; Protocol PRN Reason: Anxiety Last Admin: 05/05/24 18:43 Dose: 0.1 mg Escitalopram Oxalate (Escitalopram Oxalate 5 Mg Tablet) 5 mg PO DAILY JUNO Last Admin: 05/06/24 09:25 Dose: 5 mg Hydroxyzine HCl (Hydroxyzine Hcl 25 Mg Tablet) 25 mg PO Q6H PRN PRN Reason: mild anxiety Last Admin: 05/05/24 18:17 Dose: 25 mg Ibuprofen (Ibuprofen 800 Mg Tablet) 800 mg PO Q8H PRN PRN Reason: severe dental pain Magnesium Hydroxide (Milk Of Magnesia 30 Ml Oral.Susp) 30 ml PO DAILY PRN PRN Reason: Constipation Mirtazapine (Mirtazapine 15 Mg Tablet) 15 mg PO BEDTIME JUNO Last Admin: 05/05/24 20:46 Dose: 15 mg Nicotine (Nicotine 21 Mg Patch.Td24) 21 mg TRANSDERMA DAILY PRN PRN Reason: nicotine cravings Last Admin: 05/06/24 09:25 Dose: 21 mg Nicotine Polacrilex (Nicotine Polacrilex 2 Mg Gum) 4 mg BUCCAL Q2H PRN PRN Reason: Nicotine Cravings Last Admin: 05/04/24 20:30 Dose: 4 mg Trazodone HCl (Trazodone Hcl 50 Mg Tablet) 50 mg PO BEDTIME MRX1 PRN PRN Reason: Insomnia Last Admin: 05/05/24 22:24 Dose: 50 mg Allergies Allergies Allergy/AdvReac Type Severity Reaction Status Date / Time aspirin Allergy Rash Verified 05/02/24 15:40 clindamycin Allergy Rash Verified 05/02/24 15:40 Latex, Natural Rubber Allergy Rash Verified 05/02/24 15:40 Penicillins Allergy Anaphylaxis Verified 05/02/24 15:40 Sulfa (Sulfonamide Allergy Rash Verified 05/02/24 15:40 Antibiotics) Assessment & Plan Assessment & Plan (1) MDD (major depressive disorder), recurrent episode: Status: Acute Code(s): F33.9 - Major depressive disorder, recurrent, unspecified (2) Opioid use disorder: Status: Acute Code(s): F11.90 - Opioid use, unspecified, uncomplicated (3) Methamphetamine abuse in remission: Status: Acute Code(s): F15.11 - Other stimulant abuse, in remission Plan Patient is a 48 year female with history of MDD, opiate use disorder, methamphetamine use disorder who presented to ER due to suicidal ideation secondary to life stressors. Plan: CV 15 safety checks Start: Remeron 15mg PO bedtime clonidine 0.1mg PO BID PRN anxiety encourage groups referral to outpatient providers discharge planning 05/04: Patient continues to reports feeling depressed; pt stated, I feel depressed as hell today because it's Nicole's Day and I don't have anyone . She reports sleeping well last night. denies SI/HI/VH/AH. encouraged to attend groups. 05/05/24: Lexapro 5 mg daily. 05/06: LUQ ultrasound L shoulder xray continue regime. Reason for continued inpatient stay Substantial Risk for: rapid decompensation Time Spent With Patient Time: Total time managing care of this patient today ____ minutes.
[2024-05-06 10:01] VITALS: BP 120/70
[2024-05-06] MEDS: cloNIDine HCL 0.1 MG TABLET PO ×2 (10:01→18:37)
[2024-05-06] MEDS: hydrOXYzine HCL 25 MG TABLET PO (15:38)
[2024-05-06 18:37] VITALS: BP 116/67
[2024-05-06 19:33] VITALS: BP 119/67; PULSE 96; RESP 16; O2SAT 96
[2024-05-06] MEDS: Mirtazapine 15 MG TABLET PO (20:56)
[2024-05-06] MEDS: traZODone HCL 50 MG TABLET PO (20:56)
[2024-05-07 08:00] VITALS: BP 124/77; PULSE 76; RESP 16; TEMP 37; O2SAT 98
--- NOTE | 2024-05-07 08:24 | HO.PSYCHPN ---
Subjective Subjective Date of Service: 05/07/24 Reason For Visit: unspecified depressive disorder Subjective Notes: Conditional Voluntary Healthcare Proxy: No Guardianship: No Medical Problems Affecting Mental Status: No Interim History: completing diagnostics, reports no change in depressive sx. Tolerating escitalopram. Results of testing pending Medication Compliance: Yes Side effects from medications: No Attending Groups: Intermittent Review of Systems Acute medical concerns: No Review of Systems Review of Systems LUQ pain shoulder pain Mental Status Exam Mental Status Exam Patient Appearance: Appropriate Patient Orientation: Person, Place, Time and Situation Level of Consciousness: Alert Patient Behavior: Talkative and Good Eye Contact Mood Description: Depressed Affect Description: Flat Patient Cognition Impaired: No Ability to Follow Directions: Good Speech Pattern: Spontaneous Speech Memory Description: Intact Hallucinations: None Delusions: Not Present Perceptual Disturbances: Depersonalization Thought Process: Rumination Judgement: Fair Diagnostics Vital Signs (24Hr): Vital Signs - 24 hr 05/06/24 10:01 05/06/24 18:37 05/06/24 19:33 Pulse Rate 96 Respiratory Rate 16 Blood Pressure 120/70 116/67 119/67 Pulse Oximetry 96 Oxygen Delivery Method Room Air BMI result Body Mass Index 28.5 Labs 05/02/24 19:40 Medications Medications Current Medications Acetaminophen (Acetaminophen 325 Mg Tablet) 650 mg PO Q6H PRN PRN Reason: Headache/Pain, Scale 1-10 Last Admin: 05/04/24 09:26 Dose: 650 mg Al Hydroxide/Mg Hydroxide (Magnesium Hydrox/Alum Hydrox 30 Ml Oral.Susp) 30 ml PO Q6H PRN PRN Reason: Heartburn/Nausea Albuterol Sulfate (Albuterol Sulfate 90 Mcg 8 Gm Inhaler) 2 puff INHALE RQ6H PRN PRN Reason: Shortness of Breath/Wheezing Benzocaine (Benzocaine 20 % Oral Gel 9 Gm Tube) 1 appl MUCOUS MEM QID PRN; Protocol PRN Reason: dental pain Clonidine HCl (Clonidine Hcl 0.1 Mg Tablet) 0.1 mg PO BID PRN; Protocol PRN Reason: Anxiety Last Admin: 05/06/24 18:37 Dose: 0.1 mg Escitalopram Oxalate (Escitalopram Oxalate 5 Mg Tablet) 5 mg PO DAILY JUNO Last Admin: 05/06/24 09:25 Dose: 5 mg Hydroxyzine HCl (Hydroxyzine Hcl 25 Mg Tablet) 25 mg PO Q6H PRN PRN Reason: mild anxiety Last Admin: 05/06/24 15:38 Dose: 25 mg Ibuprofen (Ibuprofen 800 Mg Tablet) 800 mg PO Q8H PRN PRN Reason: severe dental pain Magnesium Hydroxide (Milk Of Magnesia 30 Ml Oral.Susp) 30 ml PO DAILY PRN PRN Reason: Constipation Mirtazapine (Mirtazapine 15 Mg Tablet) 15 mg PO BEDTIME JUNO Last Admin: 05/06/24 20:56 Dose: 15 mg Nicotine (Nicotine 21 Mg Patch.Td24) 21 mg TRANSDERMA DAILY PRN PRN Reason: nicotine cravings Last Admin: 05/06/24 09:25 Dose: 21 mg Nicotine Polacrilex (Nicotine Polacrilex 2 Mg Gum) 4 mg BUCCAL Q2H PRN PRN Reason: Nicotine Cravings Last Admin: 05/04/24 20:30 Dose: 4 mg Trazodone HCl (Trazodone Hcl 50 Mg Tablet) 50 mg PO BEDTIME MRX1 PRN PRN Reason: Insomnia Last Admin: 05/06/24 20:56 Dose: 50 mg Allergies Allergies Allergy/AdvReac Type Severity Reaction Status Date / Time aspirin Allergy Rash Verified 05/02/24 15:40 clindamycin Allergy Rash Verified 05/02/24 15:40 Latex, Natural Rubber Allergy Rash Verified 05/02/24 15:40 Penicillins Allergy Anaphylaxis Verified 05/02/24 15:40 Sulfa (Sulfonamide Allergy Rash Verified 05/02/24 15:40 Antibiotics) Assessment & Plan Assessment & Plan (1) MDD (major depressive disorder), recurrent episode: Status: Acute Code(s): F33.9 - Major depressive disorder, recurrent, unspecified (2) Opioid use disorder: Status: Acute Code(s): F11.90 - Opioid use, unspecified, uncomplicated (3) Methamphetamine abuse in remission: Status: Acute Code(s): F15.11 - Other stimulant abuse, in remission Plan Patient is a 48 year female with history of MDD, opiate use disorder, methamphetamine use disorder who presented to ER due to suicidal ideation secondary to life stressors. Plan: CV 15 safety checks Start: Remeron 15mg PO bedtime clonidine 0.1mg PO BID PRN anxiety encourage groups referral to outpatient providers discharge planning 05/04: Patient continues to reports feeling depressed; pt stated, I feel depressed as hell today because it's Nicole's Day and I don't have anyone . She reports sleeping well last night. denies SI/HI/VH/AH. encouraged to attend groups. 05/05/24: Lexapro 5 mg daily. 05/07/24: continue current plan/regime. Diagnostics are pending encouraged milieu participation Reason for continued inpatient stay Substantial Risk for: rapid decompensation Time Spent With Patient Time: Total time managing care of this patient today ____ minutes.
--- NOTE | 2024-05-07 10:26 | PC.NURSE ---
pt asked nurse to come back later with 9am scheduled medication.
[2024-05-07] MEDS: Escitalopram Oxalate 5 MG TABLET PO (12:21)
[2024-05-07 12:27] VITALS: BP 122/71
[2024-05-07] MEDS: Nicotine 21 MG PATCH.TD24 TRANSDERMA (12:27)
[2024-05-07] MEDS: cloNIDine HCL 0.1 MG TABLET PO ×2 (12:27→20:48)
[2024-05-07] MEDS: hydrOXYzine HCL 25 MG TABLET PO ×2 (15:54→21:40)
[2024-05-07] MEDS: Nicotine Polacrilex 2 MG GUM 4 MG BUCCAL (17:32)
[2024-05-07 20:00] VITALS: BP 133/89; PULSE 89; TEMP 36.8; O2SAT 97
[2024-05-07] MEDS: Ibuprofen 800 MG TABLET PO (20:47)
[2024-05-07] MEDS: Mirtazapine 15 MG TABLET PO (20:47)
[2024-05-07 20:48] VITALS: BP 133/89
[2024-05-07] MEDS: traZODone HCL 50 MG TABLET PO ×2 (20:48→21:40)
[2024-05-08 08:04] VITALS: BP 121/69; PULSE 70; RESP 16; TEMP 36.4; O2SAT 97
--- NOTE | 2024-05-08 09:23 | HO.PSYCHPN ---
Subjective Subjective Date of Service: 05/08/24 Reason For Visit: unspecified depressive disorder Interim History: Met w/ patient; discussed with team; reviewed chart pt reports she feels shitty and remains very depressed; also trouble sleeping. Intermittent SI. discussed medication and she agrees to increase Mirtazapine qhs and add Clonidine 0.1mg qhs Mental Status Exam Mental Status Exam Narrative: Pt is alert and oriented; behavior is cooperative, and calm; patient is not in distress; dressed in casual attire with adequate hygiene; grooming; mood is described as shitty and affect congruent, downcast; eye contact a little avoidant; Speech is normal rate, volume and prosody and not pressured; some of both psychomotor agitation/retardation present; thought process is organized and goal directed; Thought content is on loss of relationship; tx; otherwise pertinent to relevant topics and without any delusional content, paranoid ideations or grandiosity; intermittent SI; no HI; There is no evidence of perceptual disturbance. Patients insight and judgment impaired. Diagnostics Vital Signs (24Hr): Vital Signs - 24 hr 05/07/24 12:27 05/07/24 20:00 05/07/24 20:48 Temperature 98.2 F Pulse Rate 89 Respiratory Rate Blood Pressure 122/71 133/89 133/89 Pulse Oximetry 97 Oxygen Delivery Method Room Air 05/08/24 08:04 Temperature 97.6 F Pulse Rate 70 Respiratory Rate 16 Blood Pressure 121/69 Pulse Oximetry 97 Oxygen Delivery Method Room Air BMI result Body Mass Index 28.5 Labs 05/02/24 19:40 Medications Medications Current Medications Acetaminophen (Acetaminophen 325 Mg Tablet) 650 mg PO Q6H PRN PRN Reason: Headache/Pain, Scale 1-10 Last Admin: 05/04/24 09:26 Dose: 650 mg Al Hydroxide/Mg Hydroxide (Magnesium Hydrox/Alum Hydrox 30 Ml Oral.Susp) 30 ml PO Q6H PRN PRN Reason: Heartburn/Nausea Albuterol Sulfate (Albuterol Sulfate 90 Mcg 8 Gm Inhaler) 2 puff INHALE RQ6H PRN PRN Reason: Shortness of Breath/Wheezing Benzocaine (Benzocaine 20 % Oral Gel 9 Gm Tube) 1 appl MUCOUS MEM QID PRN; Protocol PRN Reason: dental pain Clonidine HCl (Clonidine Hcl 0.1 Mg Tablet) 0.1 mg PO BID PRN; Protocol PRN Reason: Anxiety Last Admin: 05/07/24 20:48 Dose: 0.1 mg Escitalopram Oxalate (Escitalopram Oxalate 5 Mg Tablet) 5 mg PO DAILY JUNO Last Admin: 05/07/24 12:21 Dose: 5 mg Hydroxyzine HCl (Hydroxyzine Hcl 25 Mg Tablet) 25 mg PO Q6H PRN PRN Reason: mild anxiety Last Admin: 05/07/24 21:40 Dose: 25 mg Ibuprofen (Ibuprofen 800 Mg Tablet) 800 mg PO Q8H PRN PRN Reason: severe dental pain Last Admin: 05/07/24 20:47 Dose: 800 mg Magnesium Hydroxide (Milk Of Magnesia 30 Ml Oral.Susp) 30 ml PO DAILY PRN PRN Reason: Constipation Mirtazapine (Mirtazapine 15 Mg Tablet) 15 mg PO BEDTIME JUNO Last Admin: 05/07/24 20:47 Dose: 15 mg Nicotine (Nicotine 21 Mg Patch.Td24) 21 mg TRANSDERMA DAILY PRN PRN Reason: nicotine cravings Last Admin: 05/07/24 12:27 Dose: 21 mg Nicotine Polacrilex (Nicotine Polacrilex 2 Mg Gum) 4 mg BUCCAL Q2H PRN PRN Reason: Nicotine Cravings Last Admin: 05/07/24 17:32 Dose: 4 mg Trazodone HCl (Trazodone Hcl 50 Mg Tablet) 50 mg PO BEDTIME MRX1 PRN PRN Reason: Insomnia Last Admin: 05/07/24 21:40 Dose: 50 mg Allergies Allergies Allergy/AdvReac Type Severity Reaction Status Date / Time aspirin Allergy Rash Verified 05/02/24 15:40 clindamycin Allergy Rash Verified 05/02/24 15:40 Latex, Natural Rubber Allergy Rash Verified 05/02/24 15:40 Penicillins Allergy Anaphylaxis Verified 05/02/24 15:40 Sulfa (Sulfonamide Allergy Rash Verified 05/02/24 15:40 Antibiotics) Assessment & Plan Assessment & Plan (1) MDD (major depressive disorder), recurrent episode: Status: Acute Code(s): F33.9 - Major depressive disorder, recurrent, unspecified (2) Opioid use disorder: Status: Acute Code(s): F11.90 - Opioid use, unspecified, uncomplicated (3) Methamphetamine abuse in remission: Status: Acute Code(s): F15.11 - Other stimulant abuse, in remission Plan Patient is a 48 year female with history of MDD, opiate use disorder, methamphetamine use disorder who presented to ER due to suicidal ideation secondary to life stressors. Plan: CV 15 safety checks Increased to Remeron 30mg PO bedtime added Clonidine 0.1mg qhs for trouble with insomnia increased frequency to clonidine 0.1mg PO q4h PRN anxiety encourage groups referral to outpatient providers discharge planning 05/04: Patient continues to reports feeling depressed; pt stated, I feel depressed as hell today because it's Nicole's Day and I don't have anyone . She reports sleeping well last night. denies SI/HI/VH/AH. encouraged to attend groups. 05/05/24: Lexapro 5 mg daily. 05/07/24: continue current plan/regime. Diagnostics are pending encouraged milieu participation 05/08 pt reports she feels shitty and remains very depressed; also trouble sleeping. Intermittent SI. discussed medication and she agrees to increase Mirtazapine qhs and add Clonidine 0.1mg qhs Patient educated on: diagnosis and medication risk/benefits Informed Consent: understands Reason for continued inpatient stay Substantial Risk for: rapid decompensation Time Spent With Patient Time: Total time managing care of this patient today ____ minutes.
[2024-05-08] MEDS: Escitalopram Oxalate 5 MG TABLET PO (09:47)
[2024-05-08] MEDS: Nicotine 21 MG PATCH.TD24 TRANSDERMA (10:10)
[2024-05-08 13:06] VITALS: BP 131/77
[2024-05-08] MEDS: cloNIDine HCL 0.1 MG TABLET PO ×3 (13:06→20:42)
[2024-05-08] MEDS: Nicotine Polacrilex 2 MG GUM 4 MG BUCCAL ×2 (16:16→18:53)
[2024-05-08 17:34] VITALS: BP 121/98
[2024-05-08 19:37] VITALS: BP 121/75; PULSE 81; RESP 18; TEMP 36.9; O2SAT 98
[2024-05-08] MEDS: Mirtazapine 30 MG TABLET PO (20:43)
[2024-05-08] MEDS: hydrOXYzine HCL 25 MG TABLET PO (20:43)
[2024-05-08] MEDS: traZODone HCL 50 MG TABLET PO (20:43)
[2024-05-09 07:54] VITALS: BP 103/58; PULSE 56; RESP 16; TEMP 35.8; O2SAT 98
[2024-05-09] MEDS: Escitalopram Oxalate 5 MG TABLET PO (08:34)
[2024-05-09 11:54] VITALS: BP 118/78
[2024-05-09] MEDS: cloNIDine HCL 0.1 MG TABLET PO ×3 (11:54→20:21)
[2024-05-09] MEDS: Nicotine Polacrilex 2 MG GUM 4 MG BUCCAL ×3 (12:22→18:38)
--- NOTE | 2024-05-09 13:09 | HO.PSYCHPN ---
Subjective Subjective Date of Service: 05/09/24 Reason For Visit: unspecified depressive disorder Subjective Notes: Conditional Voluntary Healthcare Proxy: No Guardianship: No Medical Problems Affecting Mental Status: No Interim History: Today, Jessica talked of feeling abandoned by her partner. She is not sure where to begin to plan her life now, but will stay with her cousin upon discharge and begin to move forward. Review of medications. Will increase Lexapro to 10 mg daily Medication Compliance: Yes Side effects from medications: No Attending Groups: Intermittent Review of Systems Acute medical concerns: No Review of Systems Review of Systems denies Mental Status Exam Mental Status Exam Patient Appearance: Appropriate Patient Orientation: Person, Place, Time and Situation Level of Consciousness: Alert Patient Behavior: Talkative and Good Eye Contact Mood Description: Depressed Affect Description: Flat Patient Cognition Impaired: No Ability to Follow Directions: Good Speech Pattern: Spontaneous Speech Memory Description: Intact Hallucinations: None Delusions: Not Present Perceptual Disturbances: Depersonalization Thought Process: Rumination Judgement: Fair Diagnostics Vital Signs (24Hr): Vital Signs - 24 hr 05/08/24 17:34 05/08/24 19:37 05/09/24 07:54 Temperature 98.4 F 96.4 F L Pulse Rate 81 56 Respiratory Rate 18 16 Blood Pressure 121/98 H 121/75 103/58 L Pulse Oximetry 98 98 Oxygen Delivery Method Room Air Room Air 05/09/24 11:54 Temperature Pulse Rate Respiratory Rate Blood Pressure 118/78 Pulse Oximetry Oxygen Delivery Method BMI result Body Mass Index 28.5 Labs 05/02/24 19:40 Medications Medications Current Medications Acetaminophen (Acetaminophen 325 Mg Tablet) 650 mg PO Q6H PRN PRN Reason: Headache/Pain, Scale 1-10 Last Admin: 05/04/24 09:26 Dose: 650 mg Al Hydroxide/Mg Hydroxide (Magnesium Hydrox/Alum Hydrox 30 Ml Oral.Susp) 30 ml PO Q6H PRN PRN Reason: Heartburn/Nausea Albuterol Sulfate (Albuterol Sulfate 90 Mcg 8 Gm Inhaler) 2 puff INHALE RQ6H PRN PRN Reason: Shortness of Breath/Wheezing Benzocaine (Benzocaine 20 % Oral Gel 9 Gm Tube) 1 appl MUCOUS MEM QID PRN; Protocol PRN Reason: dental pain Clonidine HCl (Clonidine Hcl 0.1 Mg Tablet) 0.1 mg PO Q4H PRN; Protocol PRN Reason: Anxiety Last Admin: 05/09/24 11:54 Dose: 0.1 mg Clonidine HCl (Clonidine Hcl 0.1 Mg Tablet) 0.1 mg PO BEDTIME JUNO; Protocol Last Admin: 05/08/24 20:42 Dose: 0.1 mg Escitalopram Oxalate (Escitalopram Oxalate 5 Mg Tablet) 5 mg PO DAILY JUNO Last Admin: 05/09/24 08:34 Dose: 5 mg Hydroxyzine HCl (Hydroxyzine Hcl 25 Mg Tablet) 25 mg PO Q6H PRN PRN Reason: mild anxiety Last Admin: 05/08/24 20:43 Dose: 25 mg Ibuprofen (Ibuprofen 800 Mg Tablet) 800 mg PO Q8H PRN PRN Reason: severe dental pain Last Admin: 05/07/24 20:47 Dose: 800 mg Magnesium Hydroxide (Milk Of Magnesia 30 Ml Oral.Susp) 30 ml PO DAILY PRN PRN Reason: Constipation Mirtazapine (Mirtazapine 30 Mg Tablet) 30 mg PO BEDTIME JUNO Last Admin: 05/08/24 20:43 Dose: 30 mg Nicotine (Nicotine 21 Mg Patch.Td24) 21 mg TRANSDERMA DAILY PRN PRN Reason: nicotine cravings Last Admin: 05/08/24 10:10 Dose: 21 mg Nicotine Polacrilex (Nicotine Polacrilex 2 Mg Gum) 4 mg BUCCAL Q2H PRN PRN Reason: Nicotine Cravings Last Admin: 05/09/24 12:22 Dose: 4 mg Trazodone HCl (Trazodone Hcl 50 Mg Tablet) 50 mg PO BEDTIME MRX1 PRN PRN Reason: Insomnia Last Admin: 05/08/24 20:43 Dose: 50 mg Allergies Allergies Allergy/AdvReac Type Severity Reaction Status Date / Time aspirin Allergy Rash Verified 05/02/24 15:40 clindamycin Allergy Rash Verified 05/02/24 15:40 Latex, Natural Rubber Allergy Rash Verified 05/02/24 15:40 Penicillins Allergy Anaphylaxis Verified 05/02/24 15:40 Sulfa (Sulfonamide Allergy Rash Verified 05/02/24 15:40 Antibiotics) Assessment & Plan Assessment & Plan (1) MDD (major depressive disorder), recurrent episode: Status: Acute Code(s): F33.9 - Major depressive disorder, recurrent, unspecified (2) Opioid use disorder: Status: Acute Code(s): F11.90 - Opioid use, unspecified, uncomplicated (3) Methamphetamine abuse in remission: Status: Acute Code(s): F15.11 - Other stimulant abuse, in remission Plan Patient is a 48 year female with history of MDD, opiate use disorder, methamphetamine use disorder who presented to ER due to suicidal ideation secondary to life stressors. Plan: 15 safety checks Increased to Remeron 30mg PO bedtime added Clonidine 0.1mg qhs for trouble with insomnia increased frequency to clonidine 0.1mg PO q4h PRN anxiety encourage groups referral to outpatient providers discharge planning 05/04: Patient continues to reports feeling depressed; pt stated, I feel depressed as hell today because it's Nicole's Day and I don't have anyone . She reports sleeping well last night. denies SI/HI/VH/AH. encouraged to attend groups. 05/05/24: Lexapro 5 mg daily. 05/07/24: continue current plan/regime. Diagnostics are pending encouraged milieu participation 05/08 pt reports she feels shitty and remains very depressed; also trouble sleeping. Intermittent SI. discussed medication and she agrees to increase Mirtazapine qhs and add Clonidine 0.1mg qhs 05/09 Increase Lexapro to 10 mg daily Reason for continued inpatient stay Substantial Risk for: rapid decompensation Time Spent With Patient Time: Total time managing care of this patient today ____ minutes.
[2024-05-09] MEDS: Nicotine 21 MG PATCH.TD24 TRANSDERMA (15:11)
[2024-05-09 16:26] VITALS: BP 128/70
[2024-05-09] MEDS: hydrOXYzine HCL 25 MG TABLET PO (16:26)
[2024-05-09 19:34] VITALS: BP 120/74; PULSE 80; RESP 16; TEMP 36.8; O2SAT 98
[2024-05-09] MEDS: Mirtazapine 30 MG TABLET PO (20:21)
[2024-05-09] MEDS: traZODone HCL 50 MG TABLET PO (20:21)
[2024-05-10] MEDS: traZODone HCL 50 MG TABLET PO ×2 (00:28→21:48)
[2024-05-10 08:00] VITALS: BP 96/55; PULSE 60; TEMP 36.4; O2SAT 97
[2024-05-10] MEDS: Escitalopram Oxalate 10 MG TABLET PO (09:22)
--- NOTE | 2024-05-10 11:37 | P.PNPSI_ITS ---
Subjective Subjective Date of Service: 05/10/24 Reason For Visit: unspecified depressive disorder Subjective Notes: Conditional Voluntary Healthcare Proxy: No Guardianship: No Medical Problems Affecting Mental Status: No Interim History: Pt discussed discharge today and beginning again after losses. Unsure what she will do, where she will live, if she will remain in [place] Review of medicine with pt and will send to [address] per her request. Medication Compliance: Yes Side effects from medications: No Attending Groups: Intermittent Review of Systems Acute medical concerns: No Review of Systems Review of Systems denies Mental Status Exam Mental Status Exam Patient Appearance: Appropriate Patient Orientation: Person, Place, Time and Situation Level of Consciousness: Alert Patient Behavior: Talkative and Good Eye Contact Mood Description: Depressed Affect Description: Flat Patient Cognition Impaired: No Ability to Follow Directions: Good Speech Pattern: Spontaneous Speech Memory Description: Intact Hallucinations: None Delusions: Not Present Perceptual Disturbances: Depersonalization Thought Process: Rumination Judgement: Fair Diagnostics Vital Signs (24Hr): Vital Signs - 24 hr 05/09/24 11:54 05/09/24 16:26 05/09/24 19:34 Temperature 98.2 F Pulse Rate 80 Respiratory Rate 16 Blood Pressure 118/78 128/70 120/74 Pulse Oximetry 98 Oxygen Delivery Method Room Air 05/10/24 08:00 Temperature 97.6 F Pulse Rate 60 Respiratory Rate Blood Pressure 96/55 L Pulse Oximetry 97 Oxygen Delivery Method Room Air BMI result Body Mass Index 28.5 Labs 05/02/24 19:40 Medications Medications Current Medications Acetaminophen (Acetaminophen 325 Mg Tablet) 650 mg PO Q6H PRN PRN Reason: Headache/Pain, Scale 1-10 Last Admin: 05/04/24 09:26 Dose: 650 mg Al Hydroxide/Mg Hydroxide (Magnesium Hydrox/Alum Hydrox 30 Ml Oral.Susp) 30 ml PO Q6H PRN PRN Reason: Heartburn/Nausea Albuterol Sulfate (Albuterol Sulfate 90 Mcg 8 Gm Inhaler) 2 puff INHALE RQ6H PRN PRN Reason: Shortness of Breath/Wheezing Benzocaine (Benzocaine 20 % Oral Gel 9 Gm Tube) 1 appl MUCOUS MEM QID PRN; Protocol PRN Reason: dental pain Clonidine HCl (Clonidine Hcl 0.1 Mg Tablet) 0.1 mg PO Q4H PRN; Protocol PRN Reason: Anxiety Last Admin: 05/09/24 16:26 Dose: 0.1 mg Clonidine HCl (Clonidine Hcl 0.1 Mg Tablet) 0.1 mg PO BEDTIME JUNO; Protocol Last Admin: 05/09/24 20:21 Dose: 0.1 mg Escitalopram Oxalate (Escitalopram Oxalate 10 Mg Tablet) 10 mg PO DAILY JUNO Last Admin: 05/10/24 09:22 Dose: 10 mg Hydroxyzine HCl (Hydroxyzine Hcl 25 Mg Tablet) 25 mg PO Q6H PRN PRN Reason: mild anxiety Last Admin: 05/09/24 16:26 Dose: 25 mg Ibuprofen (Ibuprofen 800 Mg Tablet) 800 mg PO Q8H PRN PRN Reason: severe dental pain Last Admin: 05/07/24 20:47 Dose: 800 mg Magnesium Hydroxide (Milk Of Magnesia 30 Ml Oral.Susp) 30 ml PO DAILY PRN PRN Reason: Constipation Mirtazapine (Mirtazapine 30 Mg Tablet) 30 mg PO BEDTIME JUNO Last Admin: 05/09/24 20:21 Dose: 30 mg Nicotine (Nicotine 21 Mg Patch.Td24) 21 mg TRANSDERMA DAILY PRN PRN Reason: nicotine cravings Last Admin: 05/09/24 15:11 Dose: 21 mg Nicotine Polacrilex (Nicotine Polacrilex 2 Mg Gum) 4 mg BUCCAL Q2H PRN PRN Reason: Nicotine Cravings Last Admin: 05/09/24 18:38 Dose: 4 mg Trazodone HCl (Trazodone Hcl 50 Mg Tablet) 50 mg PO BEDTIME MRX1 PRN PRN Reason: Insomnia Last Admin: 05/10/24 00:28 Dose: 50 mg Allergies Allergies Allergy/AdvReac Type Severity Reaction Status Date / Time aspirin Allergy Rash Verified 05/02/24 15:40 clindamycin Allergy Rash Verified 05/02/24 15:40 Latex, Natural Rubber Allergy Rash Verified 05/02/24 15:40 Penicillins Allergy Anaphylaxis Verified 05/02/24 15:40 Sulfa (Sulfonamide Allergy Rash Verified 05/02/24 15:40 Antibiotics) Assessment & Plan Assessment & Plan (1) MDD (major depressive disorder), recurrent episode: Status: Acute Code(s): F33.9 - Major depressive disorder, recurrent, unspecified (2) Opioid use disorder: Status: Acute Code(s): F11.90 - Opioid use, unspecified, uncomplicated (3) Methamphetamine abuse in remission: Status: Acute Code(s): F15.11 - Other stimulant abuse, in remission Plan Patient is a 48 year female with history of MDD, opiate use disorder, methamphetamine use disorder who presented to ER due to suicidal ideation secondary to life stressors. Plan: 15 safety checks Increased to Remeron 30mg PO bedtime added Clonidine 0.1mg qhs for trouble with insomnia increased frequency to clonidine 0.1mg PO q4h PRN anxiety encourage groups referral to outpatient providers discharge planning 05/04: Patient continues to reports feeling depressed; pt stated, I feel depressed as hell today because it's Nicole's Day and I don't have anyone . She reports sleeping well last night. denies SI/HI/VH/AH. encouraged to attend groups. 05/05/24: Lexapro 5 mg daily. 05/07/24: continue current plan/regime. Diagnostics are pending encouraged milieu participation 05/08 pt reports she feels shitty and remains very depressed; also trouble sleeping. Intermittent SI. discussed medication and she agrees to increase Mirtazapine qhs and add Clonidine 0.1mg qhs 05/10 Discharge 05/11. Reason for continued inpatient stay Substantial Risk for: stable for discharge Time Spent With Patient Time: Total time managing care of this patient today ____ minutes.
[2024-05-10 14:23] VITALS: BP 134/74
[2024-05-10] MEDS: Nicotine 21 MG PATCH.TD24 TRANSDERMA (14:23)
[2024-05-10] MEDS: cloNIDine HCL 0.1 MG TABLET PO ×3 (14:23→21:48)
[2024-05-10] MEDS: Nicotine Polacrilex 2 MG GUM 4 MG BUCCAL (15:29)
[2024-05-10] MEDS: hydrOXYzine HCL 25 MG TABLET PO (17:59)
[2024-05-10 18:50] VITALS: BP 124/77
[2024-05-10 20:00] VITALS: BP 124/77; PULSE 103; RESP 16; TEMP 36.8; O2SAT 97
[2024-05-10] MEDS: Mirtazapine 30 MG TABLET PO (21:48)
[2024-05-10] MEDS: QUEtiapine Fumarate 50 MG TABLET PO (21:48)
[2024-05-11 08:00] VITALS: BP 100/62; PULSE 67; RESP 16; TEMP 36.2; O2SAT 97
[2024-05-11 09:03] VITALS: BP 100/62
[2024-05-11] MEDS: cloNIDine HCL 0.1 MG TABLET PO (09:03)
[2024-05-11] MEDS: Escitalopram Oxalate 10 MG TABLET PO (09:03)
[2024-05-11] MEDS: Nicotine 21 MG PATCH.TD24 TRANSDERMA (09:04)
[2024-05-11] MEDS: Pregabalin 25 MG CAPSULE PO (11:20)
--- NOTE | 2024-05-11 13:55 | PM.PSYDC ---
DS: Providers Provider Date of Service: 05/11/24 Date of admission: 05/02/24 14:26 Date of discharge: 05/11/24 Primary care physician: Unknown Physician Admitting clinician: Angelica Goetz Attending physician on admission: Igor Veras Consults: 05/02/24 16:37 Consult to Hospitalist Routine Comment: [place]ing [place] [facility] For Exam: Transfer pt Attending physician on discharge: Igor Veras Discharging clinician: Angelica Goetz DS: Diagnosis Discharge Diagnosis (1) MDD (major depressive disorder), recurrent episode: Status: Acute (2) Opioid use disorder: Status: Acute (3) Methamphetamine abuse in remission: Status: Acute DS: Medications Discharge Medications Home Medications: Previous Rx's ?Medication ?Instructions ?Recorded acetaminophen 325 mg tablet 650 mg (2 x 325 mg) PO Q6H PRN 05/10/24 Headache/Pain, Scale 1-10 #0 tabs benzocaine 20 % mucosal gel 1 appl mucous membrane QID PRN 05/10/24 (Anbesol (benzocaine) Maximum dental pain #12 mL Strength) clonidine HCl 0.1 mg tablet 0.1 mg PO BEDTIME #30 tabs 05/10/24 escitalopram oxalate 10 mg tablet 10 mg PO DAILY #30 tabs 05/10/24 hydroxyzine HCl 25 mg tablet 25 mg PO Q6H PRN mild anxiety #15 05/10/24 tabs ibuprofen 800 mg tablet 800 mg PO Q8H PRN severe dental 05/10/24 pain #0 tabs mirtazapine 30 mg tablet 30 mg PO BEDTIME #30 tabs 05/10/24 nicotine (polacrilex) 2 mg gum 4 mg buccal Q2H PRN Nicotine 05/10/24 Cravings #110 ea nicotine 21 mg/24 hr daily 21 mg transdermal DAILY PRN 05/10/24 transdermal patch nicotine cravings #30 ea trazodone 50 mg tablet 50 mg PO BEDTIME MRX1 PRN Insomnia 05/10/24 #30 tabs Mental Status Exam Mental Status Exam Patient Appearance: Appropriate Patient Orientation: Person, Place, Time and Situation Level of Consciousness: Alert Patient Behavior: Talkative and Good Eye Contact Mood Description: Depressed Affect Description: Flat Patient Cognition Impaired: No Ability to Follow Directions: Good Speech Pattern: Spontaneous Speech Memory Description: Intact Hallucinations: None Delusions: Not Present Perceptual Disturbances: Depersonalization Thought Process: Rumination Judgement: Fair DS: Summary Hospital Course Hospital Course: Admission to adult psychiatry for exacerbation of recurrent major depression, Opioid use disorder in the context of a sudden break up of a relationship. Medications were evaluated and titrated. Pt was offered full milieu therapy during her admission. After this loss, she is starting over again and will be making some decisions about where to live. On discharge, she will return to a family members home in [facility]. Status at Discharge Functional status at discharge: independent ambulation Overall status at discharge: patient is progressing back to baseline Time Spent with Patient Time attestation: Total time managing care of this patient today ____ minutes. Time spent: Less than 30 minutes Discharge Plan Discharge Anticipated Discharge Date/Time: 05/11/24 12:00 Patient Disposition: Home, Self-Care Discharge Diagnosis: Recurrent Major Depression Opioid Use Disorder Referrals: [facility] ([facility]) [Other] - 1 Week (Patient must self present for diagnostic evaluation to establish with psychiatric medication management services. Tuesday, Tuesday, Tuesday, , Tuesday, Tuesday, Tuesday from 8:00 AM from 8:00 PM for ALL age group(s) Tuesday, Tuesday from 9:00 AM from 5:00 PM for ALL age group(s)) Physician,Unknown J [Primary Care Provider] - 1 Week Discharge Medications: New clonidine HCl 0.1 mg Tablet 0.1 mg PO BEDTIME Qty: 30 0RF Protocol: Hold for SBP< HOLD for SBP < : 90 acetaminophen 325 mg Tablet 650 mg PO Q6H PRN (Reason: Headache/Pain, Scale 1-10) Qty: 0 0RF trazodone 50 mg Tablet 50 mg PO BEDTIME MRX1 PRN (Reason: Insomnia) Qty: 30 0RF ibuprofen 800 mg Tablet 800 mg PO Q8H PRN (Reason: severe dental pain) Qty: 0 0RF nicotine (polacrilex) 2 mg Gum 4 mg buccal Q2H PRN (Reason: Nicotine Cravings) Qty: 110 0RF mirtazapine 30 mg Tablet 30 mg PO BEDTIME Qty: 30 0RF nicotine 21 mg/24 hr Patch 24 Hour 21 mg transdermal DAILY PRN (Reason: nicotine cravings) Qty: 30 0RF hydroxyzine HCl 25 mg Tablet 25 mg PO Q6H PRN (Reason: mild anxiety) Qty: 15 0RF Anbesol (benzocaine) Max Str 20 % Gel 1 appl mucous membrane QID PRN (Reason: dental pain) Qty: 12 0RF Protocol: Apply to: Apply to: teeth escitalopram oxalate 10 mg Tablet 10 mg PO DAILY Qty: 30 0RF Discontinued Rolaids (calcium carbonate) 550 mg Tablet,Chewable 550 mg PO QID PRN (Reason: Heartburn) Discharge Orders: Discharge Order (Routine); Ordered 05/11/24 Ordered By: Angelica Goetz Diet: Advance to usual diet Activity on Discharge: As tolerated Stand Alone Forms: Patient Portal Discharge page, Community Support Print Language: [place] Care Plan Goals: Mood and Behavioral Stabilization Abstinence from Substances Health Concerns: Mood and Behavioral Stabilization Abstinence from Substances Plan of Treatment: Attend follow up appointments Take medications as directed Assessment: Denies SI,HI,AH, VH No sx of acute aaliyah or psychosis Discharge Date/Time: 05/11/24 11:32
== END 2024-05-11 11:32 | disposition home or self-care (01) | DRG 751 ==
PROVIDERS: Clinical Nurse Specialist Psychiatric/Mental Health, Adult; Admitting Provider Psychiatry & Neurology Psychiatry; Visit Provider Psychiatry & Neurology Psychiatry
DX: F33.9 Major depressive disorder, recurrent, unspecified (principal); R45.851 Suicidal ideations; F15.11 Other stimulant abuse, in remission; F17.210 Nicotine dependence, cigarettes, uncomplicated; F11.90 Opioid use, unspecified, uncomplicated; J45.20 Mild intermittent asthma, uncomplicated; Z23 Encounter for immunization; Z71.6 Tobacco abuse counseling; Z91.51 Personal history of suicidal behavior; Z79.899 Other long term (current) drug therapy
CPT/HCPCS: 36415; 73030; 76705; 80053; 80061; 82607; 82746; 83036; 83735; 84439; 84443; 90656

== ENCOUNTER → 2024-05-02 14:26 | Outpatient (BNV) | payer OTHER, SELFPAY | PROVIDERS: Admitting Provider Psychiatry & Neurology Psychiatry; Visit Provider Registered Nurse | DX: F33.2 Major depressive disorder, recurrent severe without psychotic features (principal); F15.11 Other stimulant abuse, in remission; F11.90 Opioid use, unspecified, uncomplicated | CPT/HCPCS: 99233 ==

== ENCOUNTER → 2024-05-02 14:26 | Outpatient (BNV) | payer MEDICAID, SELFPAY | PROVIDERS: Admitting Provider Psychiatry & Neurology Psychiatry; Visit Provider Student in an Organized Health Care Education/Training Program | DX: Z00.8 Encounter for other general examination (principal) | CPT/HCPCS: 99222 ==